=== PATIENT | male | born 1980 | race American Indian/Alaskan Native ===

== ENCOUNTER 2018-02-27 10:06 | Outpatient (CLI) | payer OTHER | END 2018-02-27 10:07 | disposition home or self-care (01) | LOC: LAB 10:06 | DX: I10 Essential (primary) hypertension (principal); D64.9 Anemia, unspecified; R94.4 Abnormal results of kidney function studies; R60.9 Edema, unspecified | CPT/HCPCS: 36415; 84132 ==

== ENCOUNTER 2018-03-09 07:46 | Day surgery (SDC) | payer OTHER ==
[2018-03-06 09:52] LABS: Hematocrit 24.5 % (35.5-45.6); Hemoglobin 7.9 gm/dl (11.8-15.2); Mean Corpuscular HGB Conc 32 % (32-34); Mean Corpuscular Hemoglobin 33 pg (28-32); Mean Corpuscular Volume 103 fl (84-94); Platelet Count 182 K/mm3 (140-440); Red Blood Count 2.39 M/mm3 (3.65-5.03); Red Cell Distribution Width 16.8 % (13.2-15.2)
[2018-03-06 10:02] LABS: INR 0.93 (0.87-1.13)
[2018-03-06 10:03] LABS: Partial Thromboplastin Time 21.3 Sec. (24.2-36.6)
[2018-03-09] MEDS ORDERED: VERSED IV NR (08:33)
[2018-03-09] MEDS ORDERED: SUBLIMAZE IV NR (08:33)
--- NOTE | 2018-03-09 11:05 | Cat Scan Report ---
CT BIOPSY RENAL RIGHT History: Abnormal renal function Description of procedure: Informed consent was obtained. Sterile technique was utilized. 1% lidocaine for skin anesthesia. Moderate sedation was accomplished with Versed and fentanyl. The patient was sedated for 15 minutes. Independent cardiorespiratory monitoring by RN. Intraobserver time of [address] guidance, a 17-gauge introducer needle was advanced to the inferior pole of the right kidney. 2 separate 1.3 cm 18-gauge core biopsies were obtained for pathology. Follow up scan demonstrates trace hemorrhage at the biopsy site. No uncontained hemorrhage. The patient tolerated the procedure without complaint. Impression: Successful CT-guided biopsy of the inferior pole of the right kidney.
[2018-03-09 14:32] VITALS: BP 128/70
== END 2018-03-09 14:45 | disposition home or self-care (01) ==
LOC: CATHLABREC 07:46
DX: N26.9 Renal sclerosis, unspecified (principal); N02.8 Recurrent and persistent hematuria with other morphologic changes; I70.1 Atherosclerosis of renal artery; N28.89 Other specified disorders of kidney and ureter; Z79.01 Long term (current) use of anticoagulants
CPT/HCPCS: 36415; 50200; 77012; 85027; 85610; 85730; 86850; 86900; 86901; 86920; 99156; J2250; J3010; 99152

== ENCOUNTER 2018-04-06 09:32 | Outpatient (CLI) | payer OTHER ==
[2018-04-06 10:03] LABS: Hematocrit 25.7 % (35.5-45.6); Hemoglobin 8.4 gm/dl (11.8-15.2); Mean Corpuscular HGB Conc 33 % (32-34); Mean Corpuscular Hemoglobin 31 pg (28-32); Mean Corpuscular Volume 94 fl (84-94); Platelet Count 237 K/mm3 (140-440); Red Blood Count 2.73 M/mm3 (3.65-5.03)
[2018-04-06 10:06] LABS: Red Cell Distribution Width 20.4 % (13.2-15.2)
[2018-04-06 10:12] LABS: Albumin 3.6 g/dL (3.9-5); Calcium 9.4 mg/dL (8.4-10.2)
[2018-04-06 14:46] LABS: Creatinine,Urine 46.2 mg/dL (0.1-20.0)
== END 2018-04-06 09:33 | disposition home or self-care (01) ==
LOC: LAB 09:32
DX: N39.0 Urinary tract infection, site not specified (principal); I10 Essential (primary) hypertension; D64.9 Anemia, unspecified; E78.5 Hyperlipidemia, unspecified; E78.00 Pure hypercholesterolemia, unspecified; E87.2 Acidosis; M32.9 Systemic lupus erythematosus, unspecified; R80.0 Isolated proteinuria; R60.9 Edema, unspecified; R94.4 Abnormal results of kidney function studies; F17.210 Nicotine dependence, cigarettes, uncomplicated
CPT/HCPCS: 36415; 80053; 82565; 82570; 82575; 83970; 84156; 85027; 87086

== ENCOUNTER 2019-01-19 09:18 | Outpatient (CLI) | payer OTHER ==
[2019-01-19 09:52] LABS: Basophils # (Auto) 0.1 K/mm3 (0.0-0.1); Basophils % (Auto) 0.8 % (0.0-1.8); Eosinophils % (Auto) 0.3 % (0.0-4.3); Hematocrit 34.6 % (35.5-45.6); Hemoglobin 11.8 gm/dl (11.8-15.2); Lymphocytes # (Auto) 0.6 K/mm3 (1.2-5.4); Lymphocytes % (Auto) 7.4 % (13.4-35.0); Mean Corpuscular HGB Conc 34 % (32-34); Mean Corpuscular Volume 104 fl (84-94); Monocytes # (Auto) 0.7 K/mm3 (0.0-0.8); Monocytes % (Auto) 9.1 % (0.0-7.3); Platelet Count 211 K/mm3 (140-440); Red Blood Count 3.35 M/mm3 (3.65-5.03)
[2019-01-19 10:01] LABS: Red Cell Distribution Width 21.6 % (13.2-15.2)
[2019-01-19 10:04] LABS: Albumin 4.7 g/dL (3.9-5); Calcium 9.6 mg/dL (8.4-10.2)
[2019-01-19 10:25] LABS: Bacteria,Urine 2+ /HPF (Negative); Bilirubin,Urine NEG (Negative); Blood,Urine NEG (Negative); Color,Urine Yellow (Yellow); Urobilinogen,Urine < 2.0 mg/dL (<2.0)
[2019-01-19 10:27] LABS: WBC,Urine > 182.0 /HPF (0.0-6.0)
== END 2019-01-19 09:19 | disposition home or self-care (01) ==
LOC: LAB 09:18
PROVIDERS: ATTEND Internal Medicine Nephrology
DX: I10 Essential (primary) hypertension (principal); E78.5 Hyperlipidemia, unspecified; R94.4 Abnormal results of kidney function studies; R60.9 Edema, unspecified; D64.9 Anemia, unspecified; E87.2 Acidosis; M32.9 Systemic lupus erythematosus, unspecified; R80.0 Isolated proteinuria; E78.00 Pure hypercholesterolemia, unspecified; Z87.891 Personal history of nicotine dependence
CPT/HCPCS: 36415; 80048; 81001; 82040; 83970; 84100; 85025

== ENCOUNTER 2019-10-07 17:20 | Emergency (ER) | payer OTHER ==
[2019-10-07 20:30] LABS: Basophils % (Auto) 0.2 % (0.0-1.8); Eosinophils % (Auto) 0.4 % (0.0-4.3); Hematocrit 32.4 % (35.5-45.6); Hemoglobin 10.6 gm/dl (11.8-15.2); Lymphocytes # (Auto) 0.7 K/mm3 (1.2-5.4); Mean Corpuscular HGB Conc 33 % (32-34); Mean Corpuscular Volume 98 fl (84-94); Monocytes # (Auto) 1.3 K/mm3 (0.0-0.8); Monocytes % (Auto) 11.7 % (0.0-7.3); Platelet Count 190 K/mm3 (140-440); Red Cell Distribution Width 19.1 % (13.2-15.2)
[2019-10-07 20:42] LABS: Calcium 8.7 mg/dL (8.4-10.2)
[2019-10-08] MEDS ORDERED: ONDANSETRON 4 MG/2 ML INJ IV ONE (01:05)
[2019-10-08] MEDS ORDERED: MORPHINE 4 MG/1 ML INJ IV ONE (01:05)
--- NOTE | 2019-10-08 01:08 | Emergency Department Report ---
ED Abdominal Pain HPI - General Chief Complaint: Abdominal Pain Stated Complaint: PELVIS PAIN Time Seen by Provider: 10/08/19 00:59 Source: patient Mode of arrival: Wheelchair Limitations: No Limitations - History of Present Illness Initial Comments: Patient is 39 years old male with history of lupus. Patient presented to the ER complaining of lower abdominal pain for the last 3 days. Patient describes his pain as sharp and dull with no radiation. Patient denied any fever or chills. No nausea or vomiting. Patient stated that he has been having trouble controlling his bowel and bladder for a while and this is from his lupus. Patient denied any chest pain or shortness of breath. MD Complaint: abdominal pain -: days(s) (3) Location: suprapubic Radiation: none Migration to: no migration Severity: moderate Quality: sharp Consistency: intermittent - Related Data Home Medications Medication Instructions Recorded Confirmed Last Taken Oxybutynin [Ditropan] 5 mg PO DAILY 03/09/18 10/20/18 03/09/18 Ropinirole HCl [Requip] 0.5 mg PO DAILY 03/09/18 10/20/18 03/09/18 Simvastatin 20 mg PO DAILY 03/09/18 10/20/18 03/08/18 hydrALAZINE [Apresoline TAB] 25 mg PO TID 03/09/18 10/20/18 03/09/18 Verapamil ER [Calan SR] 240 mg PO DAILY 05/12/18 10/20/18 Unknown Previous Rx's Medication Instructions Recorded Last Taken Type Ondansetron [Zofran TAB] 4 mg PO Q8HR PRN #15 tablet 08/15/18 Unknown Rx Pantoprazole [Protonix TAB] 40 mg PO DAILY #30 tablet 08/15/18 Unknown Rx oxyCODONE /ACETAMINOPHEN [Percocet 1 tab PO BID PRN #10 tablet 08/15/18 Unknown Rx 5/325 mg] Aspirin EC [Halfprin EC] 81 mg PO QDAY #30 tablet. 10/21/18 Unknown Rx Furosemide [Lasix] 20 mg PO QDAY #30 tablet 10/21/18 Unknown Rx Isosorbide Dinitrate [Isordil 10 mg PO Q8HR #30 tablet 10/21/18 Unknown Rx Titradose] Metoprolol Xl [Metoprolol 50 mg PO QDAY #30 tablet 10/21/18 Unknown Rx SUCCINATE ER TAB] Allergies Allergy/AdvReac Type Severity Reaction Status Date / Time lisinopril AdvReac Rash Verified 05/12/18 00:48 sulfamethoxazole AdvReac Unknown Verified 05/12/18 00:48 [From Bactrim] trimethoprim [From Bactrim] AdvReac Unknown Verified 05/12/18 00:48 ED Review of Systems ROS: Stated complaint: PELVIS PAIN Other details as noted in HPI Comment: All other systems reviewed and negative Constitutional: denies: chills, fever Respiratory: denies: cough, shortness of breath, SOB with exertion Cardiovascular: denies: chest pain, palpitations Gastrointestinal: abdominal pain. denies: nausea, vomiting, diarrhea, constipation, hematemesis, melena, hematochezia Genitourinary: other (incontinence). denies: urgency Musculoskeletal: denies: back pain Neurological: denies: headache, weakness, numbness, paresthesias, confusion, abnormal gait ED Past Medical Hx - Past Medical History Previous Medical History?: Yes Hx Hypertension: Yes Hx Congestive Heart Failure: No Hx Diabetes: No Hx Liver Disease: No Hx Renal Disease: Yes Hx Arthritis: Yes Hx Seizures: No Hx Asthma: No Hx COPD: No Additional medical history: lupus,urinary incontinence,anemia - Surgical History Past Surgical History?: Yes Additional Surgical History: hernia repair x 2 - Social History Smoking Status: Never Smoker Substance Use Type: None - Medications Home Medications: Home Medications Medication Instructions Recorded Confirmed Last Taken Type Oxybutynin [Ditropan] 5 mg PO DAILY 03/09/18 10/20/18 03/09/18 History Ropinirole HCl [Requip] 0.5 mg PO DAILY 03/09/18 10/20/18 03/09/18 History Simvastatin 20 mg PO DAILY 03/09/18 10/20/18 03/08/18 History hydrALAZINE [Apresoline TAB] 25 mg PO TID 03/09/18 10/20/18 03/09/18 History Verapamil ER [Calan SR] 240 mg PO DAILY 05/12/18 10/20/18 Unknown History Ondansetron [Zofran TAB] 4 mg PO Q8HR PRN #15 tablet 08/15/18 10/20/18 Unknown Rx Pantoprazole [Protonix TAB] 40 mg PO DAILY #30 tablet 08/15/18 10/20/18 Unknown Rx oxyCODONE /ACETAMINOPHEN [Percocet 1 tab PO BID PRN #10 tablet 08/15/18 10/20/18 Unknown Rx 5/325 mg] Aspirin EC [Halfprin EC] 81 mg PO QDAY #30 tablet. 10/21/18 Unknown Rx Furosemide [Lasix] 20 mg PO QDAY #30 tablet 10/21/18 Unknown Rx Isosorbide Dinitrate [Isordil 10 mg PO Q8HR #30 tablet 10/21/18 Unknown Rx Titradose] Metoprolol Xl [Metoprolol 50 mg PO QDAY #30 tablet 10/21/18 Unknown Rx SUCCINATE ER TAB] ED Physical Exam - General Limitations: No Limitations General appearance: alert, in no apparent distress - Head Head exam: Present: atraumatic, normocephalic, normal inspection - Eye Eye exam: Present: normal appearance, PERRL - ENT ENT exam: Present: normal exam, normal orophraynx, mucous membranes moist - Neck Neck exam: Present: normal inspection, full ROM. Absent: tenderness, meningismus, lymphadenopathy, thyromegaly - Respiratory Respiratory exam: Present: normal lung sounds bilaterally - Cardiovascular Cardiovascular Exam: Present: regular rate, normal rhythm, normal heart sounds - GI/Abdominal GI/Abdominal exam: Present: soft, normal bowel sounds. Absent: distended, tenderness, guarding, rebound, rigid, organomegaly, mass, bruit, pulsatile mass, hernia - Extremities Exam Extremities exam: Present: normal inspection, full ROM, normal capillary refill. Absent: tenderness - Back Exam Back exam: Present: normal inspection, full ROM. Absent: CVA tenderness (R), CVA tenderness (L), muscle spasm, paraspinal tenderness, vertebral tenderness - Neurological Exam Neurological exam: Present: alert, oriented X3, CN II-XII intact - Skin Skin exam: Present: warm, intact, normal color ED Course Vital Signs 10/07/19 10/08/19 18:16 02:00 Temperature 98.3 F 97.7 F Pulse Rate 100 H 67 Respiratory 18 18 Rate Blood Pressure 150/91 157/93 [Left] O2 Sat by Pulse 98 97 Oximetry ED Medical Decision Making - Lab Data Result diagrams: 10/07/19 19:47 10/07/19 19:47 - Radiology Data Radiology results: report reviewed - Medical Decision Making Patient is 39 years old male with history of lupus. Patient presented to the ER complaining of lower abdominal pain for the last 3 days. Patient describes his pain as sharp and dull with no radiation. Patient denied any fever or chills. No nausea or vomiting. Patient stated that he has been having trouble controlling his bowel and bladder for a while and this is from his lupus. Patie nt denied any chest pain or shortness of breast. Patient received morphine and stated that he feel much better. Ct abdomen/pelvis is unremarkable. Patient advised to f/u with his PCP and to return to the ER if symptoms not improved. Critical care attestation.: If time is entered above; I have spent that time in minutes in the direct care of this critically ill patient, excluding procedure time. ED Disposition Clinical Impression: Abdominal pain Disposition: DC-01 TO HOME OR SELFCARE Is pt being admited?: No Condition: Stable Instructions: Abdominal Pain (ED) Referrals: PRIMARY CARE, [Primary Care Provider] - 3-5 Days
--- NOTE | 2019-10-08 03:22 | Cat Scan Report ---
CT abdomen pelvis w con INDICATION: abdominal pain. TECHNIQUE: All CT scans at this location are performed using the following dose modulation technique: Automated exposure control. CONTRAST: Omnipaque 300, 60 cc IV injection. COMPARISON: CT abdomen and pelvis 08/08/2018. CT ABDOMEN: Evaluation of the parenchymal organs demonstrates mild renal scarring left greater than r ight. The left kidney contains a 1 mm nonobstructing stone. Remaining parenchymal organs are unremark able. Negative for abdominal mass, fluid or inflammation. The bowel is not dilated or thickened. A normal a ppendix is identified. CT PELVIS: Negative for distal ureteral stone, fluid collection or inflammation. A small amount of fl uid is seen at the presacral space. The bladder wall is symmetrically thickened. IMPRESSION: 1. Negative for obstruction or localized inflammation. 2. Left renal scarring and small nonobstructing stone. 3. Symmetric bladder wall thickening typical of bladder outlet obstruction 4. Fluid at the presacral space is likely reactive. Signer Name: Rigoberto Chin MD Signed: 10/08/2019 3:18 AM Workstation Name: [id number]
[2019-10-08 04:10] VITALS: BP 163/96
== END 2019-10-08 04:24 | disposition home or self-care (01) ==
LOC: ED 17:20
DX: R10.30 Lower abdominal pain, unspecified (principal); I10 Essential (primary) hypertension; N28.9 Disorder of kidney and ureter, unspecified; Z98.890 Other specified postprocedural states; Z88.8 Allergy status to other drugs, medicaments and biological substances; Z88.2 Allergy status to sulfonamides
CPT/HCPCS: 36415; 74177; 80048; 85025; 96374; 96375; 99284; J2270; J2405; Q9967

== ENCOUNTER 2019-12-03 10:22 | Outpatient (CLI) | payer OTHER ==
--- NOTE | 2019-12-03 12:14 | Cat Scan Report ---
CT ABDOMEN AND PELVIS WITHOUT CONTRAST HISTORY: N18.3 CKD STAGE 3/N39.0 UTI/R60.0 LOWER LEG EDEMA COMPARISON: 10/08/2019 TECHNIQUE: Axial CT images were obtained through the abdomen and pelvis without IV contrast. Sagittal and coronal reformatted images. All CT scans at this location are performed using CT dose reduction for ALARA by means of automated exposure control. FINDINGS: CT ABDOMEN: Lung Bases: Clear. Liver: No significant abnormality. Biliary: No significant abnormality. Spleen: No significant abnormality. Unenlarged. Pancreas: No significant abnormality. Adrenals: No significant abnormality. Kidneys: The kidneys are normal size and position. Focal cortical scarring in the inferior left kidne y is again noted. Punctate calyceal stone at the inferior pole of the left kidney is unchanged. Punct ate stone in the mid right kidney is also noted. No cystic disease, mass or hydronephrosis is suspect ed. Lymphatics: No lymphadenopathy. Vasculature: No significant abnormality. Bowel/Peritoneum: No significant abnormality. No free air. No free fluid. Normal appendix. CT PELVIS: : There is moderate diffuse bladder wall thickening measuring up to 9 mm. No bladder stones or obvi ous mass. The distal ureters and prostate gland are unremarkable. Osseous Structures: Mild osteopenia is suspected. Additional Findings: None IMPRESSION: No obstructive uropathy. Punctate renal stones are noted in both kidneys. Focal scarring in the infer ior left kidney is stable. No significant change since 10/08/2019. Diffuse bladder wall thickening which is also unchanged and could represent a chronic cystitis. No acute process is identified. Signer Name: Tom Lopez Jr, MD Signed: 12/03/2019 12:10 PM Workstation Name: [id number]
== END 2019-12-03 10:23 | disposition home or self-care (01) ==
LOC: CT 10:22
DX: N20.0 Calculus of kidney (principal); N18.3 Chronic kidney disease, stage 3 (moderate); N39.0 Urinary tract infection, site not specified
CPT/HCPCS: 74176

== ENCOUNTER 2020-01-27 07:52 | Outpatient (CLI) | payer OTHER ==
--- NOTE | 2020-01-27 09:11 | Ultrasound Report ---
LIMITED RUQ ABDOMINAL ULTRASOUND INDICATION: VOMITING. COMPARISON: No relevant prior imaging study available. FINDINGS: Pancreas: Visualized portions show no significant abnormality. Abdominal Aorta: No significant abnormality. IVC: No significant abnormality. Liver: The liver measures 17.2 cm in length. No significant abnormality. Normal hepatopedal blood fl ow in the main portal vein. Gallbladder: No significant abnormality. Bile ducts: No significant abnormality. Common bile duct measures 4.9 mm. Right kidney: The right kidney is normal size measuring 11.8 cm but demonstrates increased cortical e chotexture. No focal renal lesion or hydronephrosis.. Free fluid: None. Additional Findings: Trace right pleural effusion. IMPRESSION: Unremarkable liver and biliary system. Slightly echogenic right kidney which could represent mild nonspecific renal parenchymal disease. Trace right pleural effusion.. Signer Name: Tom Lopez Jr, MD Signed: 01/27/2020 9:06 AM Workstation Name: [id number]
== END 2020-01-27 07:53 | disposition home or self-care (01) ==
LOC: US 07:52
PROVIDERS: ATTEND Student in an Organized Health Care Education/Training Program
DX: N28.89 Other specified disorders of kidney and ureter (principal); R11.10 Vomiting, unspecified
CPT/HCPCS: 76705

== ENCOUNTER 2020-07-03 17:01 | Inpatient (IN) | payer OTHER ==
[2020-07-03] MEDS ORDERED: LACTATED RINGERS 1,000 ML IV ONE (17:19)
--- NOTE | 2020-07-03 17:19 | Emergency Department Report ---
<BRIGID GLEASON - Last Filed: 07/03/20 20:11> ED General Adult HPI - General Chief complaint: Altered Mental Status Stated complaint: STEMI PUI?: No Time Seen by Provider: 07/03/20 17:15 Source: patient, EMS ( EMS documentation not available at time of chart dictation ), RN notes reviewed, old records reviewed Mode of arrival: Stretcher Limitations: Altered Mental Status, Physical Limitation - History of Present Illness Initial comments: The patient is a 40-year-old gentleman. Past medical history is complex, includes lupus, hypertension, renal insufficiency. He also has a history of dilated cardiomyopathy, EF of 35 to 45%. Today, he is brought to the hospital by emergency medical services with a complaint of weakness, and altered mental status. The patient himself denies complaints. The patient denies headache, neck pain, chest pain, abdominal pain, shortness of breath. He is not accompanied by friends or family at this time for additional information or collateral information. As per triage nurse documentation: "Mother called EMS because of lethargy." The patient is slightly sleepy but arousable. He states that he has chronic lower extremity weakness "for a long time." He is not accompanied by friends or family at this time for additional information or collateral information. I contacted the listed phone number in the patient's demographic sheet, and left a voicemail for call back requesting additional information, as nobody answered the phone. Patient is slightly confused, therefore, he is not able to describe the qualitative nature of his symptoms, exacerbating, relieving factors, aggravating factors, or radiation. -: unknown Quality: other Consistency: other Improves with: other Worsens with: other Associated Symptoms: other - Related Data Home Medications Medication Instructions Recorded Confirmed Last Taken Oxybutynin [Ditropan] 5 mg PO DAILY 03/09/18 07/03/20 03/09/18 Ropinirole HCl [Requip] 0.5 mg PO DAILY 03/09/18 07/03/20 03/09/18 Simvastatin 20 mg PO DAILY 03/09/18 07/03/20 03/08/18 hydrALAZINE [Apresoline TAB] 25 mg PO TID 03/09/18 07/03/20 03/09/18 Verapamil ER [Calan SR] 240 mg PO DAILY 05/12/18 07/03/20 Unknown Previous Rx's Medication Instructions Recorded Last Taken Type Ondansetron [Zofran TAB] 4 mg PO Q8HR PRN #15 tablet 08/15/18 Unknown Rx Pantoprazole [Protonix TAB] 40 mg PO DAILY #30 tablet 08/15/18 Unknown Rx oxyCODONE /ACETAMINOPHEN [Percocet 1 tab PO BID PRN #10 tablet 08/15/18 Unknown Rx 5/325 mg] Aspirin EC [Halfprin EC] 81 mg PO QDAY #30 tablet.dr 10/21/18 Unknown Rx Furosemide [Lasix] 20 mg PO QDAY #30 tablet 10/21/18 Unknown Rx Isosorbide Dinitrate [Isordil] 10 mg PO Q8HR #30 tablet 10/21/18 Unknown Rx Metoprolol Xl [Metoprolol 50 mg PO QDAY #30 tablet 10/21/18 Unknown Rx SUCCINATE ER TAB] traMADoL [Ultram] 50 mg PO Q6HR PRN #14 tablet 10/08/19 Unknown Rx Allergies Allergy/AdvReac Type Severity Reaction Status Date / Time lisinopril AdvReac Rash Verified 05/12/18 00:48 sulfamethoxazole AdvReac Unknown Verified 05/12/18 00:48 [From Bactrim] trimethoprim [From Bactrim] AdvReac Unknown Verified 05/12/18 00:48 ED Review of Systems Comment: Unobtainable due to pts medical conditions Constitutional: weakness Neurological: confusion ED Past Medical Hx - Past Medical History Hx Hypertension: Yes Hx Congestive Heart Failure: No Hx Diabetes: No Hx Liver Disease: No Hx Renal Disease: Yes Hx Arthritis: Yes Hx Seizures: No Hx Asthma: No Hx COPD: No Additional medical history: lupus,urinary incontinence,anemia - Surgical History Additional Surgical History: hernia repair x 2 - Social History Smoking Status: Never Smoker Substance Use Type: None - Medications Home Medications: Home Medications Medication Instructions Recorded Confirmed Last Taken Type Oxybutynin [Ditropan] 5 mg PO DAILY 03/09/18 07/03/20 03/09/18 History Ropinirole HCl [Requip] 0.5 mg PO DAILY 03/09/18 07/03/20 03/09/18 History Simvastatin 20 mg PO DAILY 03/09/18 07/03/20 03/08/18 History hydrALAZINE [Apresoline TAB] 25 mg PO TID 03/09/18 07/03/20 03/09/18 History Verapamil ER [Calan SR] 240 mg PO DAILY 05/12/18 07/03/20 Unknown History Ondansetron [Zofran TAB] 4 mg PO Q8HR PRN #15 tablet 08/15/18 07/03/20 Unknown Rx Pantoprazole [Protonix TAB] 40 mg PO DAILY #30 tablet 08/15/18 07/03/20 Unknown Rx oxyCODONE /ACETAMINOPHEN [Percocet 1 tab PO BID PRN #10 tablet 08/15/18 07/03/20 Unknown Rx 5/325 mg] Aspirin EC [Halfprin EC] 81 mg PO QDAY #30 tablet. 10/21/18 07/03/20 Unknown Rx Furosemide [Lasix] 20 mg PO QDAY #30 tablet 10/21/18 07/03/20 Unknown Rx Isosorbide Dinitrate [Isordil] 10 mg PO Q8HR #30 tablet 10/21/18 07/03/20 Unknown Rx Metoprolol Xl [Metoprolol 50 mg PO QDAY #30 tablet 10/21/18 07/03/20 Unknown Rx SUCCINATE ER TAB] traMADoL [Ultram] 50 mg PO Q6HR PRN #14 tablet 10/08/19 07/03/20 Unknown Rx ED Physical Exam - General Limitations: Altered Mental Status, Physical Limitation General appearance: lethargic - Head Head exam: Present: atraumatic, normocephalic - Eye Eye exam: Present: normal appearance - ENT ENT exam: Present: normal exam, mucous membranes dry, normal external ear exam - Neck Neck exam: Present: normal inspection, full ROM. Absent: tenderness, meningismu s - Respiratory Respiratory exam: Present: normal lung sounds bilaterally. Absent: respiratory distress - Cardiovascular Cardiovascular Exam: Present: normal rhythm, tachycardia, normal heart sounds. Absent: systolic murmur, diastolic murmur, rubs, gallop - GI/Abdominal GI/Abdominal exam: Present: soft. Absent: distended, tenderness, guarding, rebound, rigid, pulsatile mass - Rectal Rectal exam: Present: deferred - Extremities Exam Extremities exam: Present: normal inspection, other (2+ pulses noted in the bilateral upper and lower extremities. 2+ pulses noted in the bilateral upper and lower extremities. There is no palpable cord. negative Homans sign. Muscular compartments are soft. The pelvis is stable.) - Back Exam Back exam: Present: normal inspection. Absent: tenderness, CVA tenderness (R), CVA tenderness (L), paraspinal tenderness, vertebral tenderness - Neurological Exam Neurological exam: Present: altered, other (Patient sleepy but arousable. He moves his bilateral upper extremities. There is no obvious facial droop. Patient will answer some yes/no questions. He states he has chronic weakness in his bilateral lower extremities. He is not moving his lower extremities.) - Psychiatric Psychiatric exam: Present: other (No agitation noted) - Skin Skin exam: Present: warm, dry, intact, normal color. Absent: rash ED Course - Reevaluation(s) Reevaluation #1: 07/03/20 18:12 Differential diagnosis, including but not limited to: Bacteremia, viremia, intracranial lesion, lupus flare/exacerbation, lupus pericarditis/myocarditis, urinary tract infection, lupus cerebritis Assessment and plan: 40-year-old gentleman with tachycardia, nonspecific change in mentation, found to have bilateral lower extremity weakness, afebrile, with acceptable blood pressure. The patient is awake, follows commands, although he appears somewhat sleepy, with no nuchal rigidity. Check basic labs, CT scan of the brain, initiate antibiotics, fluids, steroid th erapy. Reassess after initial data points. We anticipate admission. Reevaluation #2: 07/03/20 19:05 Dr Ruy Cuba to admit discussed with neurology, Dr. Man, who is currently evaluating the patient. Recommends MRI of the brain, C, T, L-spine to be performed tomorrow. He is in agreement with spinal tap. Were also in agreement that ceftriaxone and Decadron acceptable at this time, neither of us have a high suspicion for community-acquired meningitis or encephalitis. We will attempt to obtain informed consent from the patient. We called up his family, and no one has called us back. If the patient is not able to provide informed consent, Dr. Ruy Cuba and myself will provide to provider administrative emergent consent for diagnostic procedure 07/03/20 19:07 07/03/20 19:24 Reevaluation #3: 07/03/20 20:04 Lumbar puncture performed. Patient tolerated the procedure well. Will defer to the inpatient team to follow-up on results. Patient was able to provide written informed consent. Dr Maliha Pandey to follow up on LP results 07/03/20 20:11 - Consultations Consultation #1: 07/03/20 19:21 Discussed with cardiology on-call, Dr. Kavon Alegre, we discussed the patient's history, physical, pertinent laboratory studies, EKG findings and impending diagnostics. Given impending spinal tap, will not systemically anticoagulate the patient We will treat the patient supportively, cardiology is in agreement with this plan, they will see him tomorrow in consultation. - Lumbar Puncture Consent Obtained: verbal consent, written consent, emergent situation Time Out Performed: Yes Indication for Procedure: change in mental status Patient Position: Sitting Upright/Leaning F Skin Prep: Povidone-Iodine 1% Local Anesthetic Used: Lidocaine 1% Amount of anesthesia used (mls): 6 Spinal Needle Gauge: 20G Spinal Needle Length: 3in Interspace Used: L4-L5 Fluid Initially Obtained: clear Complications: none Patient Tolerated Procedure: well ED Medical Decision Making - Lab Data Result diagrams: 07/03/20 17:33 07/03/20 17:33 Vital Signs 07/03/20 07/03/20 07/03/20 17:10 17:11 17:12 Temperature 98.8 F Pulse Rate 118 H Respiratory 18 Rate Blood Pressure 141/95 O2 Sat by Pulse 98 97 Oximetry 07/03/20 07/03/20 17:16 17:30 Temperature Pulse Rate 109 H Respiratory 18 23 Rate Blood Pressure 141/95 141/95 O2 Sat by Pulse 98 96 Oximetry Lab Results 07/03/20 Range/Units 17:30 Urine Color Yellow (Yellow) Urine Turbidity Cloudy (Clear) Urine pH 6.0 (5.0-7.0) Ur Specific Sawyer 1.009 (1.003-1.030) Urine Protein 100 mg/dl (Negative) mg/dL Urine Glucose (UA) Neg (Negative) mg/dL Urine Ketones Neg (Negative) mg/dL Urine Blood Sm (Negative) Urine Nitrite Neg (Negative) Urine Bilirubin Neg (Negative) Urine Urobilinogen < 2.0 (<2.0) mg/dL Ur Leukocyte Esterase Lg (Negative) Urine WBC (Auto) > 182.0 H (0.0-6.0) /HPF Urine RBC (Auto) 4.0 (0.0-6.0) /HPF U Epithel Cells (Auto) 2.0 (0-13.0) /HPF Urine Bacteria (Auto) 4+ (Negative) /HPF Urine WBC Clumps 3+ /HPF Urine Mucus Few /HPF - EKG Data -: EKG Interpreted by Pa EKG shows normal: sinus rhythm Rate: tachycardia - EKG Data 07/03/20 18:11 EKG shows sinus rhythm, tachycardia, rightward axis deviation, QTC prolonged, right bundle branch block, left posterior fascicular block, EKG is abnormal, the EKG is not a STEMI. The EKG shows nonspecific changes when compared to prior EKG from 10/2018 - Radiology Data Radiology results: pending, report reviewed, image reviewed Report Referring Physician: BRIGID GLEASON Patient Name: CLAU JOHNSON Date of : 1980 Sex: Male Report Date: 2020-07-03 Report Status: Finalized Findings [facility] [address] [place] [address] Cat Scan Report Signed Patient: CLAU JOHNSON MR# : [id number] : 1980 Acct:[id number] Age/Sex: 40 / M ADM Date: 07/03/20 Loc: ED Attending Dr: Ordering Physician: BRIGID GLEASON MD Date of Service: 07/03/20 Procedure(s): CT head/brain wo con Accession Number(s): [id number] cc: BRIGID GLEASON MD CT HEAD WITHOUT CONTRAST INDICATION / CLINICAL INFORMATION: Altered Mental Status. TECHNIQUE: All CT scans at this location are performed using CT dose reduction for ALARA by means of automated exposure control. COMPARISON: None available. FINDINGS: HEMORRHAGE: No evidence of intracranial hemorrhage or extra-axial fluid collection. EXTRA-AXIAL SPACES: Cortical sulci, sylvian fissures and basilar cisterns have an unremarkable appearance. VENTRICULAR SYSTEM: Developmental asymmetry of the lateral ventricles is noted, left larger than right. Third ventricle has a normal appearance. Mild prominence of the fourth ventricle is noted. This appears to be related to cerebellar atrophy. CEREBRAL PARENCHYMA: No areas of abnormal brain parenchymal attenuation are i dentified. There is no indication of recent infarction. MIDLINE SHIFT OR HERNIATION: There is no mass effect. CEREBELLUM / BRAINSTEM: Brainstem has an unremarkable appearance. Mild cerebellar atrophy is noted. MIDLINE STRUCTURES:No abnormalities of the pituitary gland or pineal region are identified. INTRACRANIAL VESSELS:No abnormalities are identified on this noncontrast head CT. ORBITS: visualized portions of the orbits have an unremarkable appearance. SOFT TISSUES of HEAD: No significant abnormality. CALVARIUM: Evaluation of bone windows reveals no abnormalities. PARANASAL SINUSES / MASTOID AIR CELLS: Paranasal sinuses are free from inflammatory mucosal disease. Mastoid air cells are normally pneumatized. IMPRESSION: 1. No acute intracranial abnormality. 2. Mild cerebellar atrophy is noted. Signer Name: Vito De La Garza MD Signed: 07/03/2020 6:38 PM Workstation Name: [id number] Transcribed By: Dictated By: Vito De La Garza MD Electronically Authenticated By: Vito De La Garza MD Signed Date/Time: 07/03/20 183 Print Report Referring Physician: BRIGID GLEASON Patient Name: CLAU JOHNSON Date of : 1980 Sex: Male Report Date: 2020-07-03 Report Status: Finalized Findings [address] [address] XRay Report Signed Patient: CLAU JOHNSON MR# : [id number] : 1980 Acct:[id number] Age/Sex: 40 / M ADM Date: 07/03/20 Loc: ED Attending Dr: Ordering Physician: BRIGID GLEASON MD Date of Service: 07/03/20 Procedure(s): XR chest 1V ap Accession Number(s): [id number] cc: BRIGID GLEASON MD Fluoro Time In Minutes: CHEST 1 VIEW 07/03/2020 5:22 PM INDICATION / CLINICAL INFORMATION: Altered Mental Status. COMPARISON: 10/20/18 FINDINGS: SUPPORT DEVICES: None. HEART / MEDIASTINUM: Upper normal size and stable. LUNGS / P LEURA: No significant pulmonary or pleural abnormality. No pneumothorax. ADDITIONAL FINDINGS: No significant additional findings. IMPRESSION: 1. No acute findings. No change. Signer Name: Sean Contreras MD Signed: 07/03/2020 6:27 PM Workstation Name: [id number] Transcribed By: DT Dictated By: Clarke Contreras MD Electronically Authenticated By: Clarke Contreras MD Signed Date/Time: 07/03/20 657 ED Disposition Clinical Impression: Lower extremity weakness, Elevated troponin, SLE (systemic lupus erythematosus), CRF (chronic renal failure), UTI (urinary tract infection) Disposition: OP ADMIT IP TO THIS HOSP Is pt being admited?: Yes Condition: Serious <RUPAL PANDEY Robert - Last Filed: 07/03/20 21:37> ED Review of Systems ROS: Stated complaint: STEMI Other details as noted in HPI ED Course Vital Signs 07/03/20 07/03/20 07/03/20 17:08 17:10 17:11 Temperature 98.8 F Pulse Rate Respiratory 23 Rate Blood Pressure O2 Sat by Pulse 96 98 Oximetry 07/03/20 07/03/20 07/03/20 17:12 17:16 17:30 Temperature Pulse Rate 118 H 109 H Respiratory 18 18 23 Rate Blood Pressure 141/95 141/95 141/95 O2 Sat by Pulse 97 98 96 Oximetry 07/03/20 07/03/20 17:45 18:00 Temperature Pulse Rate 102 H Respiratory Rate Blood Pressure 134/86 125/92 O2 Sat by Pulse 96 93 Oximetry ED Medical Decision Making - Lab Data Result diagrams: 07/03/20 17:33 07/03/20 17:33 - Medical Decision Making pts csf cell differential, protein, and glucose reviewed. They are not consistent with bacterial meningitis. CSF Gram stain and culture results are pending and to be followed up by inpatient team pt is already admitted to hospitalist service Critical care attestation.: If time is entered above; I have spent that time in minutes in the direct care of this critically ill patient, excluding procedure time. ED Disposition Time of Disposition: 21:37
[2020-07-03 18:09] LABS: Bacteria,Urine 4+ /HPF (Negative); Bilirubin,Urine NEG (Negative); Blood,Urine SM (Negative); Color,Urine Yellow (Yellow); Mucus,Urine FEW /HPF; Urobilinogen,Urine < 2.0 mg/dL (<2.0)
[2020-07-03] MEDS ORDERED: dexAMETHasone 20 MG/5 ML VIAL IV ONE (18:09)
[2020-07-03] MEDS ORDERED: SODIUM CHLORIDE 0.9% 500 ML 500 ML IV ONE ×2 (18:10→19:10)
[2020-07-03 18:11] LABS: WBC,Urine > 182.0 /HPF (0.0-6.0)
[2020-07-03] MEDS ORDERED: cefTRIAXone/NS 2 GM/100 ML 2 GM/100 ML BAG IV STA (18:12)
[2020-07-03 18:16] LABS: Hematocrit 36.9 % (35.5-45.6); Hemoglobin 12.2 gm/dl (11.8-15.2); Mean Corpuscular HGB Conc 33 % (32-34); Mean Corpuscular Volume 86 fl (84-94); Platelet Count 156 K/mm3 (140-440); Red Blood Count 4.28 M/mm3 (3.65-5.03)
[2020-07-03 18:26] LABS: Albumin 3.1 g/dL (3.9-5); Calcium 7.6 mg/dL (8.4-10.2); Red Cell Distribution Width 20.6 % (13.2-15.2)
--- NOTE | 2020-07-03 18:31 | XRay Report ---
CHEST 1 VIEW 07/03/2020 5:22 PM INDICATION / CLINICAL INFORMATION: Altered Mental Status. COMPARISON: 10/20/18 FINDINGS: SUPPORT DEVICES: None. HEART / MEDIASTINUM: Upper normal size and stable. LUNGS / PLEURA: No significant pulmonary or pleural abnormality. No pneumothorax. ADDITIONAL FINDINGS: No significant additional findings. IMPRESSION: 1. No acute findings. No change. Signer Name: Sean Contreras MD Signed: 07/03/2020 6:27 PM Workstation Name: [id number]
--- NOTE | 2020-07-03 18:42 | Cat Scan Report ---
CT HEAD WITHOUT CONTRAST INDICATION / CLINICAL INFORMATION: Altered Mental Status. TECHNIQUE: All CT scans at this location are performed using CT dose reduction for ALARA by means of automated e xposure control. COMPARISON: None available. FINDINGS: HEMORRHAGE: No evidence of intracranial hemorrhage or extra-axial fluid collection. EXTRA-AXIAL SPACES: Cortical sulci, sylvian fissures and basilar cisterns have an unremarkable appear ance. VENTRICULAR SYSTEM: Developmental asymmetry of the lateral ventricles is noted, left larger than righ t. Third ventricle has a normal appearance. Mild prominence of the fourth ventricle is noted. This ap pears to be related to cerebellar atrophy. CEREBRAL PARENCHYMA: No areas of abnormal brain parenchymal attenuation are identified. There is no i ndication of recent infarction. MIDLINE SHIFT OR HERNIATION: There is no mass effect. CEREBELLUM / BRAINSTEM: Brainstem has an unremarkable appearance. Mild cerebellar atrophy is noted. MIDLINE STRUCTURES:No abnormalities of the pituitary gland or pineal region are identified. INTRACRANIAL VESSELS:No abnormalities are identified on this noncontrast head CT. ORBITS: visualized portions of the orbits have an unremarkable appearance. SOFT TISSUES of HEAD: No significant abnormality. CALVARIUM: Evaluation of bone windows reveals no abnormalities. PARANASAL SINUSES / MASTOID AIR CELLS: Paranasal sinuses are free from inflammatory mucosal disease. Mastoid air cells are normally pneumatized. IMPRESSION: 1. No acute intracranial abnormality. 2. Mild cerebellar atrophy is noted. Signer Name: Vito De La Garza MD Signed: 07/03/2020 6:38 PM Workstation Name: [id number]
[2020-07-03 18:52] LABS: INR 1.06 (0.87-1.13)
[2020-07-03 18:53] LABS: Partial Thromboplastin Time 24.8 Sec. (24.2-36.6)
[2020-07-03 18:59] LABS: Basophils % (Manual) 0 % (0.0-1.8); Total Cells Counted 100
[2020-07-03] MEDS ORDERED: LIDOCAINE 1.5% /EPINEPHRINE 1:200,000 AMP (5 ML) INFILTRATI ONE (18:59)
[2020-07-03] MEDS ORDERED: fentaNYL 100 MCG/2 ML INJ IV ONE (19:00)
[2020-07-03 19:01] LABS: Hypochromasia Few; Platelet Estimate Consistent w Auto; Target Cells Few
[2020-07-03 19:40] LABS: Chol/HDL Ratio 3.67 %
[2020-07-03] MEDS ORDERED: LIDOCAINE (1%) 10 MG/1 ML VIAL 20 ML MDV ONE (19:48)
[2020-07-03 20:32] LABS: Glucose,CSF 59 mg/dL
--- NOTE | 2020-07-03 20:48 | Consultation ---
History of Present Illness Consult date: 07/03/20 History of present illness: [facility] Consult Services Stat Consult Date of Service: 07/03/2020 18:39:41 Impression: Encephalopathy must rule out cerebritis and transverse myelitis Additionally must consider pericarditis or myocarditis in face of troponin elevation. Comments/Sign-Out: He needs a complete evaluation to include autoimmune profile, lumbar puncture including routine studies and CSF IgG index, MRI of brain as well as cervical, thoracic and lumbar spine. I agree with steroid treatment and antibiotic for urine, A clearer picture of his background hopefully can vbe obtained from a family member, Metrics: [facility] Notification Time: 07/03/2020 18:38:21 Stamp Time: 07/03/2020 18:39:41 Callback Response Time: 07/03/2020 18:42:42 Video Start Time: 07/03/2020 18:57:45 Video End Time: 07/03/2020 19:20:44 Our recommendations are outlined below. Therapies: Physical Therapy, Occupational Therapy, Speech Therapy Assessment When Applicable Other WorkUp: Infectious/metabolic workup per primary team Disposition: Neurology Follow Up Recommended Sign Out: Discussed with Emergency Department Provider Chief Complaint: Confusion History of Present Illness: Patient is a 40 year old Male. This is a 40-year-old man who claims he doesn't know why he is at the hospital. His story keeps changing and he is vague. 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 He has obvious dermatologic abnormalities with patches of vitiligo and here loss. He claims to have been walking up until two days ago. Now he has profound weakness in both legs. He has a permanent indwelling catheter and he says that he has no control over bowels or bladder and he has been catheterized for 10 years. He says that he is very weak and "wretched." He has history of hypertension. He is not diabetic. He doesn't of coronary disease but says he has congestive heart failure. He has kidney disease. His urinalysis showed 4+ white blood cells but is not clear if this is infection or colonization. He has an elevated lactic acid of 2.9 but he is not febrile consistent with sepsis and he denies any history of seizures. The ED physician was concerned about possible meningitis or cerebritis. The patient later told me that he sees a poker manager who told him he does not have systemic lupus but only discoid lupus. 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 He is paraplegic. Due to the immediate potential for life-threatening deterioration due to underlying acute neurologic illness, I spent 35 minutes providing critical care. This time includes time for face to face visit via telemedicine, review of medical records, imaging studies and discussion of findings with providers, the patient and/or family. Dr Vasyl Man [facility] Case [id number] Medications and Allergies Allergies Allergy/AdvReac Type Severity Reaction Status Date / Time lisinopril AdvReac Rash Verified 05/12/18 00:48 sulfamethoxazole AdvReac Unknown Verified 05/12/18 00:48 [From Bactrim] trimethoprim [From Bactrim] AdvReac Unknown Verified 05/12/18 00:48 Home Medications Medication Instructions Recorded Confirmed Last Taken Type Oxybutynin [Ditropan] 5 mg PO DAILY 03/09/18 07/03/20 03/09/18 History Ropinirole HCl [Requip] 0.5 mg PO DAILY 03/09/18 07/03/20 03/09/18 History Simvastatin 20 mg PO DAILY 03/09/18 07/03/20 03/08/18 History hydrALAZINE [Apresoline TAB] 25 mg PO TID 03/09/18 07/03/20 03/09/18 History Verapamil ER [Calan SR] 240 mg PO DAILY 05/12/18 07/03/20 Unknown History Ondansetron [Zofran TAB] 4 mg PO Q8HR PRN #15 tablet 08/15/18 07/03/20 Unknown Rx Pantoprazole [Protonix TAB] 40 mg PO DAILY #30 tablet 08/15/18 07/03/20 Unknown Rx oxyCODONE /ACETAMINOPHEN [Percocet 1 tab PO BID PRN #10 tablet 08/15/18 07/03/20 Unknown Rx 5/325 mg] Aspirin EC [Halfprin EC] 81 mg PO QDAY #30 tablet.dr 10/21/18 07/03/20 Unknown Rx Furosemide [Lasix] 20 mg PO QDAY #30 tablet 10/21/18 07/03/20 Unknown Rx Isosorbide Dinitrate [Isordil] 10 mg PO Q8HR #30 tablet 10/21/18 07/03/20 Un known Rx Metoprolol Xl [Metoprolol 50 mg PO QDAY #30 tablet 10/21/18 07/03/20 Unknown Rx SUCCINATE ER TAB] traMADoL [Ultram] 50 mg PO Q6HR PRN #14 tablet 10/08/19 07/03/20 Unknown Rx Physical Examination - Vital Signs Vital Signs: Vital Signs Resp Pulse Ox 23 96 07/03/20 17:08 07/03/20 17:08 Results - Laboratory Findings CBC and BMP: 07/03/20 17:33 07/03/20 17:33 Abnormal Lab Findings: Abnormal Labs 07/03/20 07/03/20 07/03/20 17:30 17:33 17:33 RDW 20.6 H Seg Neuts % (Manual) 74.0 H Potassium 3.5 L Carbon Dioxide 19 L Creatinine 1.8 H Glucose 105 H Lactic Acid Calcium 7.6 L Alkaline Phosphatase 155 H Total Creatine Kinase 185 H Troponin T 0.368 H* Albumin 3.1 L Triglycerides Cholesterol TSH Urine WBC (Auto) > 182.0 H Salicylates Acetaminophen 07/03/20 07/03/20 07/03/20 17:33 17:33 17:33 RDW Seg Neuts % (Manual) Potassium Carbon Dioxide Creatinine Glucose Lactic Acid 2.90 H* Calcium Alkaline Phosphatase Total Creatine Kinase Troponin T Albumin Triglycerides Cholesterol TSH 0.164 L Urine WBC (Auto) Salicylates < 0.3 L Acetaminophen 07/03/20 07/03/20 17:33 17:33 RDW Seg Neuts % (Manual) Potassium Carbon Dioxide Creatinine Glucose Lactic Acid Calcium Alkaline Phosphatase Total Creatine Kinase Troponin T Albumin Triglycerides 216 H Cholesterol 206 H TSH Urine WBC (Auto) Salicylates Acetaminophen 5.0 L
[2020-07-03 21:07] LABS: Appearance,CSF Clear
[2020-07-03 21:08] LABS: Total Cells Counted 50 /mm3
[2020-07-03 21:11] LABS: Basophils CSF 0 %; Red Blood Cell,CSF 0 /mm3 (0-0); White Blood Cell,CSF 6 /mm3 (1-10)
[2020-07-03] MEDS ORDERED: SODIUM CHLORIDE 0.9% 1000 ML 1,000 ML ONE (21:57)
--- NOTE | 2020-07-03 22:27 | History and Physical Report ---
History of Present Illness Date of examination: 07/03/20 Date of admission: 07/03/20 19:10 Chief complaint: Altered mental status for 1 day History of present illness: 40-year-old male with history of lupus, hypertension, renal insufficiency, dilated cardiomyopathy with ejection fraction of 35 to 45% patient brought in by EMS for because of increasing lethargy. Patient is slightly lethargic but easily arousable. Patient is slightly confused. The ER was concerned about lupus cerebritis. But the patient was not altered or see having seizures. No fever. No exposure to coronavirus. - Past Medical History Hypertension: Yes cardiomyopathy Renal Disease Lupu urinary incontinence, anemia - Surgical History Additional Surgical History: hernia repair x 2 - Social History Smoking Status: Never Smoker Substance Use Type: None Family history Htn - Medications Home Medications: Home Medications Medication Instructions Recorded Confirmed Last Taken Type Oxybutynin [Ditropan] 5 mg PO DAILY 03/09/18 07/03/20 03/09/18 History Ropinirole HCl [Requip] 0.5 mg PO DAILY 03/09/18 07/03/20 03/09/18 History Simvastatin 20 mg PO DAILY 03/09/18 07/03/20 03/08/18 History hydrALAZINE [Apresoline TAB] 25 mg PO TID 03/09/18 07/03/20 03/09/18 History Verapamil ER [Calan SR] 240 mg PO DAILY 05/12/18 07/03/20 Unknown History Ondansetron [Zofran TAB] 4 mg PO Q8HR PRN #15 tablet 08/15/18 07/03/20 Unknown Rx Pantoprazole [Protonix TAB] 40 mg PO DAILY #30 tablet 08/15/18 07/03/20 Unknown Rx oxyCODONE /ACETAMINOPHEN [Percocet 1 tab PO BID PRN #10 tablet 08/15/18 07/03/20 Unknown Rx 5/325 mg] Aspirin EC [Halfprin EC] 81 mg PO QDAY #30 tablet. 10/21/18 07/03/20 Unknown Rx Furosemide [Lasix] 20 mg PO QDAY #30 tablet 10/21/18 07/03/20 Unknown Rx Isosorbide Dinitrate [Isordil] 10 mg PO Q8HR #30 tablet 10/21/18 07/03/20 Unknown Rx Metoprolol Xl [Metoprolol 50 mg PO QDAY #30 tablet 10/21/18 07/03/20 Unknown Rx SUCCINATE ER TAB] traMADoL [Ultram] 50 mg PO Q6HR PRN #14 tablet 10/08/19 07/03/20 Unknown Rx Review of Systems Constitutional no weight loss or weight gain no fever or chills HEENT no sore throat no post nasal drip no diplopia Neck no neck stiffness no lymph gland enlargement Chest and lungs no shortness of breath cough or wheezing CVS no chest pain no diaphoresis no palpitations GI no nausea no vomiting no diarrhea Genitourinary system no dysuria no flank pain Musculoskeletal system no muscle pains no joint pains [employer] lethargic Skin no rash no itching Psychiatric no depression no homicidal or suicidal tendencies Hematologic no lymphedema or bruising Endocrine no polydipsia no polyuria no cold intolerance no heat intolerance Medications and Allergies Allergies Allergy/AdvReac Type Severity Reaction Status Date / Time lisinopril AdvReac Rash Verified 05/12/18 00:48 sulfamethoxazole AdvReac Unknown Verified 05/12/18 00:48 [From Bactrim] trimethoprim [From Bactrim] AdvReac Unknown Verified 05/12/18 00:48 Home Medications Medication Instructions Recorded Confirmed Last Taken Type Oxybutynin [Ditropan] 5 mg PO DAILY 03/09/18 07/03/20 03/09/18 History Ropinirole HCl [Requip] 0.5 mg PO DAILY 03/09/18 07/03/20 03/09/18 History Simvastatin 20 mg PO DAILY 03/09/18 07/03/20 03/08/18 History hydrALAZINE [Apresoline TAB] 25 mg PO TID 03/09/18 07/03/20 03/09/18 History Verapamil ER [Calan SR] 240 mg PO DAILY 05/12/18 07/03/20 Unknown History Ondansetron [Zofran TAB] 4 mg PO Q8HR PRN #15 tablet 08/15/18 07/03/20 Unknown Rx Pantoprazole [Protonix TAB] 40 mg PO DAILY #30 tablet 08/15/18 07/03/20 Unknown Rx oxyCODONE /ACETAMINOPHEN [Percocet 1 tab PO BID PRN #10 tablet 08/15/18 07/03/20 Unknown Rx 5/325 mg] Aspirin EC [Halfprin EC] 81 mg PO QDAY #30 tablet. 10/21/18 07/03/20 Unknown Rx Furosemide [Lasix] 20 mg PO QDAY #30 tablet 10/21/18 07/03/20 Unknown Rx Isosorbide Dinitrate [Isordil] 10 mg PO Q8HR #30 tablet 10/21/18 07/03/20 Unknown Rx Metoprolol Xl [Metoprolol 50 mg PO QDAY #30 tablet 10/21/18 07/03/20 Unknown Rx SUCCINATE ER TAB] traMADoL [Ultram] 50 mg PO Q6HR PRN #14 tablet 10/08/19 07/03/20 Unknown Rx Exam - Constitutional Vitals: Temp Pulse Resp BP Pulse Ox 98.8 F 88 18 139/98 98 07/03/20 17:10 07/03/20 21:39 07/03/20 21:39 07/03/20 21:39 07/03/20 21:39 General appearance: Present: no acute distress, well-nourished - EENT Eyes: Present: PERRL ENT: hearing intact, clear oral mucosa - Neck Neck: Present: supple, normal ROM - Respiratory Respiratory effort: normal Respiratory: bilateral: CTA - Cardiovascular Heart rate: 78 Rhythm: regular Heart Sounds: Present: S1 & S2. Absent: rub, click - Extremities Extremities: no ischemia, pulses intact, pulses symmetrical, No edema Peripheral Pulses: within normal limits - Abdominal General gastrointestinal: Present: soft, non-tender, non-distended, normal bowel sounds Male genitourinary: Present: normal - Integumentary Integumentary: Present: clear, warm, dry - Musculoskeletal Musculoskeletal: gait normal, strength equal bilaterally - Psychiatric Psychiatric: appropriate mood/affect, intact judgment & insight - Neurologic Neurologic: CNII-XII intact, moves all extremities - Allied Health Allied health notes reviewed: nursing, case management HEART Score - HEART Score Troponin: Troponin T 0.368 ng/mL (0.00-0.029) H* 07/03/20 17:33 Results - Labs CBC & Chem 7: 07/05/20 06:54 07/03/20 17:33 Labs: Laboratory Last Values WBC 6.9 K/mm3 (4.5-11.0) 07/03/20 17:33 RBC 4.28 M/mm3 (3.65-5.03) 07/03/20 17:33 Hgb 12.2 gm/dl (11.8-15.2) 07/03/20 17:33 Hct 36.9 % (35.5-45.6) 07/03/20 17:33 MCV 86 fl (84-94) 07/03/20 17:33 MCH 29 pg (28-32) 07/03/20 17:33 MCHC 33 % (32-34) 07/03/20 17: RDW 20.6 % (13.2-15.2) H 07/03/20 17:33 Plt Count 156 K/mm3 (140-440) 07/03/20 17:33 [place] % (Auto) Chief Librarian Extension Department 07/03/20 17:33 Add Manual Diff Complete 07/03/20 17:33 Total Counted 100 07/03/20 17:33 Seg Neuts % (Manual) 74.0 % (40.0-70.0) H 07/03/20 17:33 Band Neutrophils % 0 % 07/03/20 17:33 Lymphocytes % (Manual) 17.0 % (13.4-35.0) 07/03/20 17:33 Reactive Lymphs % (Man) 1.0 % 07/03/20 17:33 Monocytes % (Manual) 4.0 % (0.0-7.3) 07/03/20 17:33 Eosinophils % (Manual) 3.0 % (0.0-4.3) 07/03/20 17:33 Basophils % (Manual) 0 % (0.0-1.8) 07/03/20 17:33 Metamyelocytes % 1.0 % 07/03/20 17:33 Myelocytes % 0 % 07/03/20 17:33 Promyelocytes % 0 % 07/03/20 17:33 Blast Cells % 0 % 07/03/20 17:33 Nucleated RBC % Not Reportable 07/03/20 17: Seg Neutrophils # Man 5.1 K/mm3 (1.8-7.7) 07/03/20 17:33 Band Neutrophils # 0.0 K/mm3 07/03/20 17:33 Lymphocytes # (Manual) 1.2 K/mm3 (1.2-5.4) 07/03/20 17:33 Abs React Lymphs (Man) 0.1 K/mm3 07/03/20 17:33 Monocytes # (Manual) 0.3 K/mm3 (0.0-0.8) 07/03/20 17:33 Eosinophils # (Manual) 0.2 K/mm3 (0.0-0.4) 07/03/20 17:33 Basophils # (Manual) 0.0 K/mm3 (0.0-0.1) 07/03/20 17:33 Metamyelocytes # 0.1 K/mm3 07/03/20 17:33 Myelocytes # 0.0 K/mm3 07/03/20 17:33 Promyelocytes # 0.0 K/mm3 07/03/20 17:33 Blast Cells # 0.0 K/mm3 07/03/20 17:33 WBC Morphology Not Reportable 07/03/20 17:33 WBC Morphology TNR 07/03/20 17:33 Hypersegmented Neuts Not Reportable 07/03/20 17:33 Hyposegmented Neuts Not Reportable 07/03/20 17:33 Hypogranular Neuts Not Reportable 07/03/20 17:33 Smudge Cells Not Reportable 07/03/20 17:33 Toxic Granulation Not Reportable 07/03/20 17:33 Toxic Vacuolation Not Reportable 07/03/20 17:33 Dohle Bodies Not Reportable 07/03/20 17:33 Pelger-Huet Anomaly Not Reportable 07/03/20 17:33 Lisa Rods Not Reportable 07/03/20 17:33 Platelet Estimate Consistent w auto 07/03/20 17:33 Clumped Platelets Not Reportable 07/03/20 17:33 Plt Clumps, EDTA Not Reportable 07/03/20 17:33 Large Platelets Not Reportable 07/03/20 17:33 Giant Platelets Not Reportable 07/03/20 17:33 Platelet Satelliting Not Reportable 07/03/20 17:33 Plt Morphology Comment Not Reportable 07/03/20 17:33 RBC Morphology Not Reportable 07/03/20 17:33 Dimorphic RBCs Not Reportable 07/03/20 17:33 Polychromasia Not Reportable 07/03/20 17:33 Hypochromasia Few 07/03/20 17:33 Poikilocytosis Not Reportable 07/03/20 17:33 Anisocytosis Not Reportable 07/03/20 17:33 Microcytosis Not Reportable 07/03/20 17:33 Macrocytosis Not Reportable 07/03/20 17:33 Spherocytes Not Reportable 07/03/20 17:33 Pappenheimer Bodies Not Reportable 07/03/20 17:33 Sickle Cells Not Reportable 07/03/20 17:33 Target Cells Few 07/03/20 17:33 Tear Drop Cells Not Reportable 07/03/20 17:33 Ovalocytes Not Reportable 07/03/20 17:33 Helmet Cells Not Reportable 07/03/20 17:33 [place] Bodies Not Reportable 07/03/20 17:33 [place] Rings Not Reportable 07/03/20 17:33 Dre Cells Not Reportable 07/03/20 17:33 Bite Cells Not Reportable 07/03/20 17:33 Crenated Cell Not Reportable 07/03/20 17:33 Elliptocytes Few 07/03/20 17:33 Acanthocytes (Spur) Not Reportable 07/03/20 17:33 Rouleaux Not Reportable 07/03/20 17:33 Hemoglobin C Crystals Not Reportable 07/03/20 17:33 Schistocytes Not Reportable 07/03/20 17:33 Malaria parasites Not Reportable 07/03/20 17:33 Lalo Bodies Not Reportable 07/03/20 17:33 Hem Pathologist Commnt No 07/03/20 17:33 PT 13.9 Sec. (12.2-14.9) 07/03/20 17:33 INR 1.06 (0.87-1.13) 07/03/20 17:33 APTT 24.8 Sec. (24.2-36.6) 07/03/20 17:33 Sodium 142 mmol/L (137-145) 07/03/20 17:33 Potassium 3.5 mmol/L (3.6-5.0) L 07/03/20 17:33 Chloride 106.7 mmol/L (98-107) 07/03/20 17:33 Carbon Dioxide 19 mmol/L (22-30) L 07/03/20 17:33 Anion Gap 20 mmol/L 07/03/20 17:33 BUN 20 mg/dL (9-20) 07/03/20 17:33 Creatinine 1.8 mg/dL (0.8-1.3) H 07/03/20 17:33 Estimated GFR 51 ml/min 07/03/20 17:33 BUN/Creatinine Ratio 11 % 07/03/20 17:33 Glucose 105 mg/dL (75-100) H 07/03/20 17:33 Lactic Acid 2.90 mmol/L (0.7-2.0) H* 07/03/20 17:33 Calcium 7.6 mg/dL (8.4-10.2) L 07/03/20 17:33 Magnesium 2.30 mg/dL (1.7-2.3) 07/03/20 17:33 Total Bilirubin 0.20 mg/dL (0.1-1.2) 07/03/20 17:33 AST 29 units/L (5-40) 07/03/20 17:33 ALT 13 units/L (7-56) 07/03/20 17:33 Alkaline Phosphatase 155 units/L (35-129) H 07/03/20 17:33 Ammonia 40.0 umol/L (25-60) 07/03/20 17:33 Total Creatine Kinase 185 units/L (55-170) H 07/03/20 17:33 Troponin T 0.368 ng/mL (0.00-0.029) H* 07/03/20 17:33 Total Protein 6.9 g/dL (6.3-8.2) 07/03/20 17:33 Albumin 3.1 g/dL (3.9-5) L 07/03/20 17:33 Albumin/Globulin Ratio 0.8 % 07/03/20 17:33 Triglycerides 216 mg/dL (2-149) H 07/03/20 17:33 Cholesterol 206 mg/dL (50-199) H 07/03/20 17:33 LDL Cholesterol Direct 120 mg/dL (50-130) 07/03/20 17:33 HDL Cholesterol 56 mg/dL (40-59) 07/03/20 17:33 Cholesterol/HDL Ratio 3.67 % 07/03/20 17:33 TSH 0.164 mlU/mL (0.270-4.200) L 07/03/20 17:33 Free T4 1.01 ng/dL (0.76-1.46) 07/03/20 17:33 Urine Color Yellow (Yellow) 07/03/20 17:30 Urine Turbidity Cloudy (Clear) 07/03/20 17:30 Urine pH 6.0 (5.0-7.0) 07/03/20 17:30 Ur Specific [place] 1.009 (1.003-1.030) 07/03/20 17:30 Urine Protein 100 mg/dl mg/dL (Negative) 07/03/20 17:30 Urine Glucose (UA) Neg mg/dL (Negative) 07/03/20 17:30 Urine Ketones Neg mg/dL (Negative) 07/03/20 17:30 Urine Blood Sm (Negative) 07/03/20 17:30 Urine Nitrite Neg (Negative) 07/03/20 17:30 Urine Bilirubin Neg (Negative) 07/03/20 17:30 Urine Urobilinogen < 2.0 mg/dL (<2.0) 07/03/20 17:30 Ur Leukocyte Esterase Lg (Negative) 07/03/20 17:30 Urine WBC (Auto) > 182.0 /HPF (0.0-6.0) H 07/03/20 17:30 Urine RBC (Auto) 4.0 /HPF (0.0-6.0) 07/03/20 17:30 U Epithel Cells (Auto) 2.0 /HPF (0-13.0) 07/03/20 17:30 Urine Bacteria (Auto) 4+ /HPF (Negative) 07/03/20 17:30 Urine WBC Clumps 3+ /HPF 07/03/20 17:30 Urine Mucus Few /HPF 07/03/20 17:30 CSF Appearance Clear 07/03/20 Unknown CSF Color Colorless 07/03/20 Unknown CSF WBC 6 /mm3 (1-10) 07/03/20 Unknown CSF RBC 0 /mm3 (0-0) 07/03/20 Unknown CSF Seg Neutrophils 0 % (0-6) 07/03/20 Unknown CSF Lymphocytes % 84 % (40-80) 07/03/20 Unknown CSF Reactive Lymphs 0 % 07/03/20 Unknown CSF Monocytes % 16 % (15-45) 07/03/20 Unknown CSF Eosinophils % 0 % 07/03/20 Unknown CSF Basophils 0 % 07/03/20 Unknown CSF Pathologist Review C 07/03/20 Unknown CSF Glucose 59 mg/dL 07/03/20 Unknown CSF Total Protein 65 mg/dL 07/03/20 Unknown Salicylates < 0.3 mg/dL (2.8-20.0) L 07/03/20 17:33 Acetaminophen 5.0 ug/mL (10.0-30.0) L 07/03/20 17:33 Blood Type B POSITIVE 07/03/20 17:42 Antibody Screen Negative 07/03/20 17:42 Short CBC 07/05/20 Range/Units 06:54 WBC 3.7 L (4.5-11.0) K/mm3 Hgb 11.8 (11.8-15.2) gm/dl Hct 35.9 (35.5-45.6) % Plt Count 135 L (140-440) K/mm3 Cardiac Enzymes 07/04/20 Range/Units 08:41 Troponin T 0.229 H* (0.00-0.029) ng/mL Microbiology: Microbiology 07/03/20 17:33 Peripheral/Venous Blood Culture - Preliminary Culture in Progress 07/03/20 17:33 Peripheral/Venous Blood Culture - Preliminary Culture in Progress - Imaging and Cardiology Imaging and Cardiology: Chest x-ray No acute findings Head CT No acute intracranial abnormality Mild cerebral atrophy is noted Vaughn/IV: IV Catheter Type [Right INT / Saline Lock Antecubital] Assessment and Plan Advance Directives: Yes - Patient Problems (1) Acute encephalopathy Current Visit: Yes Status: Acute Plan to address problem: Secondary to UTI and Sirs-systemic inflammatory response syndrome consistent with toxic metabolic encephalopathy (2) SIRS (systemic inflammatory response syndrome) Current Visit: Yes Status: Acute Plan to address problem: Patient lactic acid is high white count is normal (3) Acute kidney injury Current Visit: No Status: Acute Plan to address problem: IV Fluids for now (4) UTI (urinary tract infection) Current Visit: Yes Status: Acute Plan to address problem: IV Rocephin for now pending urine cultures (5) Lupus (systemic lupus erythematosus) Current Visit: Yes Status: Chronic Qualifiers: Systemic lupus erythematosus type: unspecified Plan to address problem: I do not agree with any lupus flareup Altered mental status secondary to urinary tract infection and elevated lactic acid, Sirs CSF was negative (6) Hypertension Current Visit: No Status: Chronic Qualifiers: Hypertension type: essential hypertension Qualified Code(s): I10 - Es sential (primary) hypertension Plan to address problem: Continue antihypertensives (7) Cardiomyopathy Current Visit: Yes Status: Chronic Qualifiers: Cardiomyopathy type: unspecified Qualified Code(s): I42.9 - Cardiomyopathy, unspecified Plan to address problem: Continue Lasix Repeat echocardiogram (8) Elevated troponin level Current Visit: Yes Status: Acute Plan to address problem: Probably nonspecific Will defer to cardiology (9) DVT prophylaxis Current Visit: Yes Status: Acute Plan to address problem: On heparin and GI prophylaxis
[2020-07-03 22:29] LABS: Amphetamine Screen,Urine Negative; Benzodiazepines Screen,Urine Negative; Cannabinoid Screen,Urine Negative; Cocaine Screen,Urine Negative; Methadone Screen,Urine Negative; Opiate Screen,Urine Negative
[2020-07-04] MEDS ORDERED: ONDANSETRON 4 MG/2 ML INJ IV PRN (01:25)
[2020-07-04] MEDS ORDERED: ACETAMINOPHEN 325 MG TAB PO PRN (01:25)
[2020-07-04] MEDS ORDERED: oxyCODONE /ACETAMINOPHEN 5-325MG TAB PO PRN (01:25)
[2020-07-04] MEDS ORDERED: HYDROmorphone 1 MG/1 ML INJ IV PRN (01:25)
[2020-07-04] MEDS: SODIUM CHLORIDE 0.9% 1000 ML 1,000 ML IV SCH (05:30)
--- NOTE | 2020-07-04 10:20 | Consultation ---
History of Present Illness Consult date: 07/04/20 Consult reason: elevated troponin, other (abnormal ECG) History of present illness: This is a 40 year old male with a history of dilated nonischemic cardiomyopathy by lexiscan thallium test done a year and a half ago that showed no ischemia but a decreased left ventricular ejection fraction 30-35% by echocardiogram. A follow up echocardiogram done 6 months later reports resolving cardiomyopathy, with a normal left ventricular ejection fraction. Co-morbidities includes discoid lupus, chronic hypertension, hyperlipidemia and chronic kidney disease. Patient was brought to this hospital with altered mental status. Head CT scan reports no acute intracranial abnormalities and a chest x-ray was normal. Initial labs shows lactic acidosis and elevation of troponin levels. He has a creatinine of 1.8. There were no reports of chest pain or unusual shortness of breath. Lower extremity edema has resolved. An ECG is sinus tachycardia with LVH and nonspecific Twave abnormalities. Rate 110. Medications and Allergies Allergies Allergy/AdvReac Type Severity Reaction Status Date / Time lisinopril AdvReac Rash Verified 05/12/18 00:48 sulfamethoxazole AdvReac Unknown Verified 05/12/18 00:48 [From Bactrim] trimethoprim [From Bactrim] AdvReac Unknown Verified 05/12/18 00:48 Home Medications Medication Instructions Recorded Confirmed Last Taken Type Oxybutynin [Ditropan] 5 mg PO DAILY 03/09/18 07/03/20 03/09/18 History Ropinirole HCl [Requip] 0.5 mg PO DAILY 03/09/18 07/03/20 03/09/18 History Simvastatin 20 mg PO DAILY 03/09/18 07/03/20 03/08/18 History hydrALAZINE [Apresoline TAB] 25 mg PO TID 03/09/18 07/03/20 03/09/18 History Verapamil ER [Calan SR] 240 mg PO DAILY 05/12/18 07/03/20 Unknown History Ondansetron [Zofran TAB] 4 mg PO Q8HR PRN #15 tablet 08/15/18 07/03/20 Unknown Rx Pantoprazole [Protonix TAB] 40 mg PO DAILY #30 tablet 08/15/18 07/03/20 Unknown Rx oxyCODONE /ACETAMINOPHEN [Percocet 1 tab PO BID PRN #10 tablet 08/15/18 07/03/20 Unknown Rx 5/325 mg] Aspirin EC [Halfprin EC] 81 mg PO QDAY #30 tablet. 10/21/18 07/03/20 Unknown Rx Furosemide [Lasix] 20 mg PO QDAY #30 tablet 10/21/18 07/03/20 Unknown Rx Isosorbide Dinitrate [Isordil] 10 mg PO Q8HR #30 tablet 10/21/18 07/03/20 Unknown Rx Metoprolol Xl [Metoprolol 50 mg PO QDAY #30 tablet 10/21/18 07/03/20 Unknown Rx SUCCINATE ER TAB] traMADoL [Ultram] 50 mg PO Q6HR PRN #14 tablet 10/08/19 07/03/20 Unknown Rx Active Meds: Active Medications Acetaminophen (Tylenol) 650 mg PO Q4H PRN PRN Reason: Pain MILD(1-3)/Fever >100.5/CADET Famotidine (Pepcid) 20 mg IV BID ADIA Hydromorphone HCl (Dilaudid) 0.5 mg IV Q3H PRN PRN Reason: Pain , Severe (7-10) Sodium Chloride (Nacl 0.9% 1000 Ml) 1,000 mls @ 100 mls/hr IV DIRECT ADIA Last Admin: 07/04/20 05:30 Dose: 100 mls/hr Documented by: Ceftriaxone Sodium (Rocephin/Ns 2 Gm/100 Ml) 2 gm in 100 mls @ 200 mls/hr IV Q24HR ADIA; Protocol Ondansetron HCl (Zofran) 4 mg IV Q8H PRN PRN Reason: Nausea And Vomiting Oxycodone/Acetaminophen (Percocet 5/325) 1 tab PO Q6H PRN PRN Reason: Pain, Moderate (4-6) Sodium Chloride (Sodium Chloride Flush Syringe 10 Ml) 10 ml IV BID ADIA Sodium Chloride (Sodium Chloride Flush Syringe 10 Ml) 10 ml IV PRN PRN PRN Reason: LINE FLUSH Physical Examination Vital Signs Resp Pulse Ox 23 96 07/03/20 17:08 07/03/20 17:08 General appearance: no acute distress HEENT: Positive: PERRL Neck: Positive: trachea midline Cardiac: Positive: Reg Rate and Rhythm Lungs: Positive: Decreased Breath Sounds Neuro: Positive: Weakness Extremities: Absent: edema Results 07/03/20 17:33 07/03/20 17:33 Cardiac Enzymes 07/03/20 Range/Units 17:33 AST 29 (5-40) units/L Coagulation 07/03/20 Range/Units 17:33 PT 13.9 (12.2-14.9) Sec. INR 1.06 (0.87-1.13) APTT 24.8 (24.2-36.6) Sec. Lipids 07/03/20 Range/Units 17:33 Triglycerides 216 H (2-149) mg/dL Cholesterol 206 H (50-199) mg/dL HDL Cholesterol 56 (40-59) mg/dL Cholesterol/HDL Ratio 3.67 % CBC 07/03/20 Range/Units 17:33 WBC 6.9 (4.5-11.0) K/mm3 RBC 4.28 (3.65-5.03) M/mm3 Hgb 12.2 (11.8-15.2) gm/dl Hct 36.9 (35.5-45.6) % Plt Count 156 (140-440) K/mm3 Comprehensive Metabolic Panel 07/03/20 Range/Units 17:33 Sodium 142 (137-145) mmol/L Potassium 3.5 L (3.6-5.0) mmol/L Chloride 106.7 (98-107) mmol/L Carbon Dioxide 19 L (22-30) mmol/L BUN 20 (9-20) mg/dL Creatinine 1.8 H (0.8-1.3) mg/dL Glucose 105 H (75-100) mg/dL Calcium 7.6 L (8.4-10.2) mg/dL AST 29 (5-40) units/L ALT 13 (7-56) units/L Alkaline Phosphatase 155 H (35-129) units/L Total Protein 6.9 (6.3-8.2) g/dL Albumin 3.1 L (3.9-5) g/dL Assessment and Plan Elevated troponin pt denies chest pain Lactid acidosis Acute encephalopathy -resolved head CT scan: no acute intracranial abnormalities Hx of resolving CMP no ischemia by MPI 10/2018 LVEF 30-35% by echo 10/2018 Normal LVEF by re-echo 03/2019 Chronic renal disease Hypertension Hx of Discoid Lupus HLP Will obtain an echo for cardiac assessment.
[2020-07-04] MEDS: FAMOTIDINE 20 MG/2 ML INJ IV SCH ×2 (10:41→22:50)
[2020-07-04] MEDS: cefTRIAXone/NS 2 GM/100 ML 2 GM/100 ML BAG IV SCH (10:42)
[2020-07-05] MEDS ORDERED: hydrALAZINE 20 MG/1 ML INJ IV ONE (01:16)
[2020-07-05] MEDS: hydrALAZINE 20 MG/1 ML INJ IV PRN ×2 (06:30→12:15)
[2020-07-05 07:23] LABS: Hematocrit 35.9 % (35.5-45.6); Hemoglobin 11.8 gm/dl (11.8-15.2); Mean Corpuscular HGB Conc 33 % (32-34); Mean Corpuscular Volume 86 fl (84-94); Platelet Count 135 K/mm3 (140-440); Red Blood Count 4.18 M/mm3 (3.65-5.03)
[2020-07-05 07:31] LABS: Red Cell Distribution Width 20.8 % (13.2-15.2)
--- NOTE | 2020-07-05 07:59 | Progress Note ---
Assessment and Plan - Patient Problems (1) Acute encephalopathy Current Visit: Yes Status: Acute Plan to address problem: Secondary to UTI and Sirs-systemic inflammatory response syndrome consistent with toxic metabolic encephalopathy (2) SIRS (systemic inflammatory response syndrome) Current Visit: Yes Status: Acute Plan to address problem: Patient lactic acid is high white count is normal (3) Acute kidney injury Current Visit: No Status: Acute Plan to address problem: IV Fluids for now (4) UTI (urinary tract infection) Current Visit: Yes Status: Acute Plan to address problem: IV Rocephin for now pending urine cultures (5) Lupus (systemic lupus erythematosus) Current Visit: Yes Status: Chronic Qualifiers: Systemic lupus erythematosus type: unspecified Plan to address problem: I do not agree with any lupus flareup Altered mental status secondary to urinary tract infection and elevated lactic acid, Sirs CSF was negative (6) Hypertension Current Visit: No Status: Chronic Qualifiers: Hypertension type: essential hypertension Qualified Code(s): I10 - Essential (primary) hypertension Plan to address problem: Continue antihypertensives (7) Cardiomyopathy Current Visit: Yes Status: Chronic Qualifiers: Cardiomyopathy type: unspecified Qualified Code(s): I42.9 - Cardiomyopathy, unspecified Plan to address problem: Continue Lasix Repeat echocardiogram (8) Elevated troponin level Current Visit: Yes Status: Acute Plan to address problem: Probably nonspecific Will defer to cardiology (9) DVT prophylaxis Current Visit: Yes Status: Acute Plan to address problem: On heparin and GI prophylaxis Subjective Date of service: 07/04/20 Principal diagnosis: Acute encephalopathy, UTI Interval history: Patient admitted for urinary tract infection and acute encephalopathy with the possibility of lupus flare Patient doing better Objective - Constitutional Vitals: Vital Signs - 12hr 07/04/20 07/04/20 07/04/20 20:00 22:00 23:18 Temperature 98 F 98.1 F Pulse Rate 97 H 68 Respiratory 16 18 Rate Blood Pressure 190/117 Blood Pressure 178/107 [Left] O2 Sat by Pulse 99 99 96 Oximetry 07/05/20 07/05/20 07/05/20 01:30 03:01 04:00 Temperature 98.0 F Pulse Rate 66 97 H 97 H Respiratory 18 Rate Blood Pressure 190/112 180/109 Blood Pressure [Left] O2 Sat by Pulse 97 Oximetry 07/05/20 06:30 Temperature Pulse Rate 85 Respiratory Rate Blood Pressure 188/118 Blood Pressure [Left] O2 Sat by Pulse Oximetry General appearance: Present: no acute distress, well-nourished - EENT Eyes: PERRL, EOM intact ENT: hearing intact, clear oral mucosa Ears: bilateral: normal - Neck Neck: supple, normal ROM - Respiratory Respiratory effort: normal Respiratory: bilateral: CTA - Breasts Breasts: normal - Cardiovascular Heart rate: 78 Rhythm: regular Heart Sounds: Present: S1 & S2. Absent: gallop, rub Extremities: pulses intact, No edema, normal color, Full ROM - Gastrointestinal General gastrointestinal: Present: soft, non-tender, non-distended, normal bowel sounds - Genitourinary Male genitourinary: normal - Integumentary Integumentary: clear, warm, dry - Musculoskeletal Musculoskeletal: 1, strength equal bilaterally - Neurologic Neurologic: moves all extremities - Psychiatric Psychiatric: memory intact, appropriate mood/affect, intact judgment & insight - Labs CBC & Chem 7: 07/05/20 06:54 07/03/20 17:33 Labs: Abnormal lab results 07/04/20 07/04/20 07/04/20 Range/Units 08:41 08:41 14:34 WBC (4.5-11.0) K/mm3 RDW (13.2-15.2) % Plt Count (140-440) K/mm3 Lactic Acid 3.20 H* 2.50 H* (0.7-2.0) mmol/L Troponin T 0.229 H* (0.00-0.029) ng/mL 07/04/20 07/04/20 07/05/20 Range/Units 16:31 18:54 06:54 WBC 3.7 L (4.5-11.0) K/mm3 RDW 20.8 H (13.2-15.2) % Plt Count 135 L (140-440) K/mm3 Lactic Acid 2.20 H* 3.90 H* (0.7-2.0) mmol/L Troponin T (0.00-0.029) ng/mL HEART Score - HEART Score Troponin: Troponin T 0.229 ng/mL (0.00-0.029) H* 07/04/20 08:41
[2020-07-05 08:00] LABS: Albumin 2.9 g/dL (3.9-5); Calcium 8.1 mg/dL (8.4-10.2)
[2020-07-05 08:52] LABS: Anisocytosis 1+; Basophils % (Manual) 0 % (0.0-1.8); Eosinophils % (Manual) 0 % (0.0-4.3); Platelet Estimate Consistent w Auto; Total Cells Counted 100
[2020-07-05] MEDS ORDERED: METOPROLOL TARTRATE 5 MG/5 ML INJ IV NR (09:15)
[2020-07-05] MEDS: cefTRIAXone/NS 2 GM/100 ML 2 GM/100 ML BAG IV SCH (09:36)
[2020-07-05] MEDS: FAMOTIDINE 20 MG/2 ML INJ IV SCH (09:36)
[2020-07-05] MEDS: ASPIRIN EC 81 MG TAB PO SCH (09:36)
[2020-07-05] MEDS: HEPARIN 5,000 UNIT/1 ML VIAL SUB-Q SCH ×2 (09:36→21:44)
--- NOTE | 2020-07-05 09:42 | Progress Note ---
Assessment and Plan - Patient Problems (1) Supraventricular tachycardia Current Visit: Yes Status: Acute Plan to address problem: We will get a stat twelve-lead EKG, and treat the patient with intravenous metoprolol followed by metoprolol 50 mg p.o. every 8 hours for prophylaxis of SVT. The patient is currently on verapamil which will be stopped. (2) Uncontrolled hypertension Current Visit: Yes Status: Acute Plan to address problem: For uncontrolled hypertension we will use Procardia XL 60 mg twice daily. (3) Elevated troponin level Current Visit: Yes Status: Acute Plan to address problem: Nonspecific troponin elevation will be treated conservatively. Echocardiogram on this presentation shows normal left ventricular systolic function, ejection fraction 55 to 60%. Subjective Date of service: 07/05/20 Principal diagnosis: Acute encephalopathy, UTI Interval history: This morning, the patient developed sudden onset tachycardia. It has the morphology of a supraventricular tachycardia with a rate of 140. Cannot exclude atrial flutter with 2-1 conduction. A 12-lead EKG was ordered stat and is pending. The patient is otherwise comfortable on bedrest, and blood pressure is elevated at 180 systolic. Echocardiogram done yesterday was normal left ventricular systolic function with ejection fraction 55 to 60%, no significant valvular abnormalities. Objective Vital Signs Temp Pulse Resp BP BP Pulse Ox 07/05/20 09:35 99 07/05/20 08:38 98.3 F 130 H 18 224/123 99 07/05/20 06:30 85 188/118 07/05/20 04:00 97 H 07/05/20 03:01 98.0 F 97 H 18 180/109 97 07/05/20 01:30 66 190/112 07/04/20 23:18 98.1 F 68 18 190/117 96 07/04/20 22:00 99 07/04/20 20:00 98 F 97 H 16 178/107 99 07/04/20 19:36 98.2 F 83 16 201/113 97 07/04/20 15:34 98.3 F 80 20 193/106 99 - Physical Examination General: No Apparent Distress HEENT: Positive: PERRL Neck: Positive: trachea midline Cardiac: Positive: Tachycardia Lungs: Positive: Decreased Breath Sounds Neuro: Positive: Grossly Intact Abdomen: Positive: Soft Skin: Positive: Other (Skin discoloration associated with lupus) Extremities: Absent: edema - Labs and Meds Cardiac Enzymes 07/05/20 Range/Units 06:54 AST 17 (5-40) units/L CBC 07/05/20 Range/Units 06:54 WBC 3.7 L (4.5-11.0) K/mm3 RBC 4.18 (3.65-5.03) M/mm3 Hgb 11.8 (11.8-15.2) gm/dl Hct 35.9 (35.5-45.6) % Plt Count 135 L (140-440) K/mm3 Comprehensive Metabolic Panel 07/05/20 Range/Units 06:54 Sodium 140 (137-145) mmol/L Potassium 3.5 L (3.6-5.0) mmol/L Chloride 107.5 H (98-107) mmol/L Carbon Dioxide 18 L (22-30) mmol/L BUN 20 (9-20) mg/dL Creatinine 1.6 H (0.8-1.3) mg/dL Glucose 82 (75-100) mg/dL Calcium 8.1 L (8.4-10.2) mg/dL AST 17 (5-40) units/L ALT 8 (7-56) units/L Alkaline Phosphatase 150 H (35-129) units/L Total Protein 6.0 L (6.3-8.2) g/dL Albumin 2.9 L (3.9-5) g/dL
[2020-07-05] MEDS ORDERED: NON-FORMULARY EACH (Simvastatin [Simvastatin] 20 MG) PO SCH (10:00)
[2020-07-05] MEDS ORDERED: VERAPAMIL ER 240 MG TAB PO SCH (10:00)
[2020-07-05] MEDS: METOPROLOL TARTRATE 50 MG TAB PO SCH ×2 (10:05→17:16)
[2020-07-05] MEDS: NIFEdipine XL 60 MG TAB PO SCH ×2 (10:05→21:40)
[2020-07-05] MEDS: hydrALAZINE 25 MG TAB PO SCH ×2 (13:44→21:40)
[2020-07-05] MEDS ORDERED: ISOSORBIDE DINITRATE 10 MG TAB PO SCH (14:00)
--- NOTE | 2020-07-05 17:50 | Progress Note ---
Assessment and Plan - Patient Problems (1) Acute encephalopathy Current Visit: Yes Status: Acute Plan to address problem: Acute encephalopathy secondary to UTI with chronic kidney disease has resolved. Alert and oriented x3. (2) CRF (chronic renal failure) Current Visit: Yes Status: Acute Plan to address problem: Patient around baseline creatinine of 1.4 at 1.5. (3) Elevated troponin level Current Visit: Yes Status: Acute (4) SIRS (systemic inflammatory response syndrome) Current Visit: Yes Status: Acute Plan to address problem: Secondary to UTI. Patient states he has chronic UTI. Should follow-up outpatient to evaluate why patient has recurrent UTI should see urology outpatient Dr. Miller. (5) SLE (systemic lupus erythematosus) Current Visit: Yes Status: Acute Plan to address problem: Patient is currently not having a lupus flare. Stable to be discharge in a.m. if tachycardia is stable. (6) Supraventricular tachycardia Current Visit: Yes Status: Acute Plan to address problem: Patient with SVT. Evaluated by cardiology. Was 130. Had evidence of new right bundle branch block on EKG. Now evaluated by cardiology echocardiogram initially showed ejection fraction of 40%. No ischemia on Lexiscan. New follow-up echo was normal ejection fraction. Appears to be controlled with beta-farzana AV jane blocking agent. (7) UTI (urinary tract infection) Current Visit: Yes Status: Acute Plan to address problem: UTI continue treatment Rocephin. Patient has recurrent UTI should be to be discharged tomorrow we will consider empiric antibiotic Macrobid with discharge. Patient is allergic to Bactrim. (8) Uncontrolled hypertension Current Visit: Yes Status: Acute Plan to address problem: Add calcium channel farzana as well patient was on diltiazem prior. Subjective Date of service: 07/05/20 Principal diagnosis: Acute encephalopathy, UTI Interval history: 40-year-old male with a history of lupus hypertension chronic kidney disease presented with altered mental status thought to be secondary to metabolic encephalopathy from UTI. This has resolved patient is alert oriented x3. Hospital course complicated by episode of sinus tachycardia which was evaluated by cardiology. At present heart rate is normal 85. No chest pain no shortness of breath no altered mental status. Objective - Constitutional Vitals: Vital Signs - 12hr 07/05/20 07/05/20 07/05/20 06:30 08:38 09:35 Temperature 98.3 F Pulse Rate 85 130 H Respiratory 18 Rate Blood Pressure 188/118 224/123 Blood Pressure [Left] O2 Sat by Pulse 99 99 Oximetry 07/05/20 07/05/20 07/05/20 10:05 10:16 12:02 Temperature 98 F Pulse Rate 99 H 94 H Respiratory 18 18 Rate Blood Pressure 172/115 Blood Pressure 171/120 [Left] O2 Sat by Pulse 97 Oximetry 07/05/20 07/05/20 07/05/20 12:15 13:44 13:45 Temperature Pulse Rate 94 H 104 H Respiratory Rate Blood Pressure 171/120 138/83 138/83 Blood Pressure [Left] O2 Sat by Pulse Oximetry 07/05/20 07/05/20 17:06 17:16 Temperature 98.2 F Pulse Rate 102 H 103 H Respiratory 18 Rate Blood Pressure 130/82 138/82 Blood Pressure [Left] O2 Sat by Pulse 98 Oximetry General appearance: Present: no acute distress, well-nourished - EENT Eyes: PERRL, EOM intact ENT: hearing intact, clear oral mucosa Ears: bilateral: normal - Neck Neck: supple, normal ROM - Respiratory Respiratory effort: normal Respiratory: bilateral: CTA - Breasts Breasts: normal - Cardiovascular Rhythm: regular Heart Sounds: Present: S1 & S2. Absent: gallop, rub Extremities: pulses intact, No edema, normal color, Full ROM - Gastrointestinal General gastrointestinal: Present: soft, non-tender, non-distended, normal bowel sounds - Genitourinary Male genitourinary: normal - Integumentary Integumentary: clear, warm, dry - Musculoskeletal Musculoskeletal: 1, strength equal bilaterally - Neurologic Neurologic: moves all extremities - Psychiatric Psychiatric: memory intact, appropriate mood/affect, intact judgment & insight - Labs CBC & Chem 7: 07/05/20 06:54 07/05/20 06:54 Labs: Abnormal lab results 07/04/20 07/05/20 07/05/20 Range/Units 18:54 06:54 06:54 WBC 3.7 L (4.5-11.0) K/mm3 RDW 20.8 H (13.2-15.2) % Plt Count 135 L (140-440) K/mm3 Seg Neuts % (Manual) 71.0 H (40.0-70.0) % Lymphocytes # (Manual) 0.9 L (1.2-5.4) K/mm3 Potassium 3.5 L (3.6-5.0) mmol/L Chloride 107.5 H (98-107) mmol/L Carbon Dioxide 18 L (22-30) mmol/L Creatinine 1.6 H (0.8-1.3) mg/dL Lactic Acid 3.90 H* (0.7-2.0) mmol/L Calcium 8.1 L (8.4-10.2) mg/dL Alkaline Phosphatase 150 H (35-129) units/L Total Protein 6.0 L (6.3-8.2) g/dL Albumin 2.9 L (3.9-5) g/dL HEART Score - HEART Score Troponin: Troponin T 0.229 ng/mL (0.00-0.029) H* 07/04/20 08:41
[2020-07-05] MEDS: FAMOTIDINE 20 MG TAB PO SCH (21:40)
[2020-07-05] MEDS ORDERED: PRAVASTATIN 40 MG TAB PO SCH (22:00)
[2020-07-06] MEDS: METOPROLOL TARTRATE 50 MG TAB PO SCH ×2 (03:00→10:13)
[2020-07-06] MEDS: FAMOTIDINE 20 MG TAB PO SCH (09:59)
[2020-07-06] MEDS: NIFEdipine XL 60 MG TAB PO SCH (09:59)
[2020-07-06] MEDS: ASPIRIN EC 81 MG TAB PO SCH (10:00)
[2020-07-06] MEDS: cefTRIAXone/NS 2 GM/100 ML 2 GM/100 ML BAG IV SCH (10:01)
[2020-07-06] MEDS: hydrALAZINE 25 MG TAB PO SCH ×2 (10:01→13:37)
[2020-07-06] MEDS: HEPARIN 5,000 UNIT/1 ML VIAL SUB-Q SCH (10:09)
--- NOTE | 2020-07-06 10:44 | Progress Note ---
Assessment and Plan Supraventricular tachycardia on metoprolol for suppression Elevated troponin, nonspecific pt denies chest pain Lactid acidosis -resolved Acute encephalopathy -resolved head CT scan: no acute intracranial abnormalities Hx of resolving CMP Normal left ventricular systolic function, EF 55-60% by echo this admission Normal LVEF by re-echo 03/2019 no ischemia by MPI 10/2018 LVEF 30-35% by echo 10/2018 Chronic renal disease Hypertension -better Hx of Discoid Lupus HLP Continue telemetry monitoring. Otherwise, conservative cardiac management. Subjective Date of service: 07/06/20 Principal diagnosis: Acute encephalopathy, UTI Interval history: Patient appears well, resting in bed comfortably. He denies palpitations, dizziness and light headedness. No events reported on telemetry monitoring overnight. BP is better, systolic at 126. Objective Vital Signs Temp Pulse Pulse Resp BP BP Pulse Ox 07/06/20 10:13 89 126/83 07/06/20 10:01 89 126/83 07/06/20 08:41 98.6 F 89 18 126/83 99 07/06/20 03:21 98.1 F 92 H 18 125/78 97 07/06/20 03:00 90 125/78 07/05/20 23:17 98.5 F 99 H 16 123/79 96 07/05/20 23:00 99 H 07/05/20 22:00 94 H 07/05/20 21:40 95 H 130/85 07/05/20 19:22 98.3 F 94 H 16 135/84 97 07/05/20 17:16 103 H 138/82 07/05/20 17:06 98.2 F 102 H 18 130/82 98 07/05/20 15:55 108 H 07/05/20 13:45 138/83 07/05/20 13:44 104 H 138/83 07/05/20 12:15 94 H 171/120 07/05/20 12:02 98 F 94 H 18 171/120 97 - Physical Examination General: No Apparent Distress HEENT: Positive: PERRL Neck: Positive: trachea midline Cardiac: Positive: Reg Rate and Rhythm Lungs: Positive: Decreased Breath Sounds Neuro: Positive: Grossly Intact Skin: Positive: Other (Skin discoloration associated with lupus) Extremities: Absent: edema
--- NOTE | 2020-07-06 11:38 | Discharge Summary ---
Providers - Providers Date of Admission: 07/04/20 15:51 Date of discharge: 07/06/20 Attending physician: SHARAN SCANLON 07/03/20 19:08 Consult to Physician [CONS] Urgent Comment: Dr. Larkin spoke with Dr. Alegre @ 1918 Consulting Provider: RUSSELL POWELL Physician Instructions: Reason For Exam: Abnormal EKG, elevated troponin 07/04/20 01:25 Physical Therapy Evaluation and Treat [CONS] Routine Comment: Reason For Exam: unable to walk Primary care physician: CHEMICAL PROCESSING TECHNICIAN Hospitalization Reason for admission: AMS Condition: Good Hospital course: This patient is a 40-year-old man with a history of lupus, chronic hypertension and chronic kidney disease who was admitted to the hospital with altered mental status, and is undergoing neurological work-up for acute encephalopathy. A lumbar puncture was done in the emergency room. There are multiple laboratory abnormalities including a lactate level of 2.7, a creatinine of 1.8, and a low TSH of 0.16. Also, pt noted to have troponin level was also measured and mildly elevated at 0.22-0.36. Cardiology consultation was requested for evaluation of the elevated troponin. We also note that the patient's ECG on this presentation was sinus tachycardia at 110, with a new right bundle branch block. Despite the right bundle branch block, there are no ischemic ST or T wave abnormalities chest x-ray shows a mild to moderate cardiomegaly, but clear lungs. ECHO completed for CM which revealed Normal left ventricular systolic function, EF 55-60%. Cards recommended conservative rx. Pt. had SVT treated with metoprolol 200 mg p.o. twice daily. Disposition: TO HOME OR SELFCARE Time spent for discharge: 32 Core Measure Documentation - Palliative Care Palliative Care/ Comfort Measures: Not Applicable - Core Measures Any of the following diagnoses?: none Exam - Constitutional Vitals: Temp Pulse Resp BP Pulse Ox 98.6 F 89 18 126/83 99 07/06/20 08:41 07/06/20 10:13 07/06/20 08:41 07/06/20 10:13 07/06/20 08:41 General appearance: Present: no acute distress, well-nourished - EENT Eyes: Present: PERRL ENT: hearing intact, clear oral mucosa - Neck Neck: Present: supple, normal ROM - Respiratory Respiratory effort: normal Respiratory: bilateral: CTA - Cardiovascular Heart Sounds: Present: S1 & S2. Absent: rub, click - Extremities Extremities: pulses symmetrical, No edema Peripheral Pulses: within normal limits - Abdominal General gastrointestinal: Present: soft, non-tender, non-distended, normal bowel sounds Male genitourinary: Present: normal - Integumentary Integumentary: Present: clear, warm, dry - Musculoskeletal Musculoskeletal: gait normal, strength equal bilaterally - Psychiatric Psychiatric: appropriate mood/affect, intact judgment & insight - Neurologic Neurologic: CNII-XII intact, moves all extremities Plan Activity: advance as tolerated Weight Bearing Status: Weight Bear as Tolerated Diet: regular Follow up with: PRIMARY CARE, [Primary Care Provider] - 7 Days Prescriptions: hydrALAZINE [Apresoline TAB] 25 mg PO TID #90 Verapamil ER [Calan SR] 240 mg PO DAILY #30 Oxybutynin [Ditropan] 5 mg PO DAILY #30 Aspirin EC [Halfprin EC] 81 mg PO QDAY #30 tablet. Metoprolol [Lopressor TAB] 200 mg PO BID #60 tablet Pantoprazole [Protonix TAB] 40 mg PO DAILY #30 tablet Ropinirole HCl [Requip] 0.5 mg PO DAILY #30 Simvastatin 20 mg PO DAILY #30
[2020-07-06 12:11] VITALS: BP 114/71
[2020-07-06] MEDS: SODIUM CHLORIDE 0.9% 1000 ML 1,000 ML IV SCH (13:38)
[2020-07-09 14:27] LABS: ANA Screen, IFA Positive (Negative)
== END 2020-07-06 16:02 | disposition home or self-care (01) | DRG 682 ==
LOC: ED 17:01 → 3A 19:10 → 4A 21:10 → OBSVTOIN 07-04 15:51
PROVIDERS: ADMIT Internal Medicine; ATTEND Hospitalist
PROC: 009U3ZX Drainage of Spinal Canal, Percutaneous Approach, Diagnostic (ICD-10-PCS; principal; 2020-07-03)
DX: N17.9 Acute kidney failure, unspecified (principal); G92 Toxic encephalopathy; N39.0 Urinary tract infection, site not specified; R65.10 Systemic inflammatory response syndrome (SIRS) of non-infectious origin without acute organ dysfunction; E87.2 Acidosis; I47.1 Supraventricular tachycardia; I42.9 Cardiomyopathy, unspecified; R79.89 Other specified abnormal findings of blood chemistry; M32.9 Systemic lupus erythematosus, unspecified; N18.9 Chronic kidney disease, unspecified; I12.9 Hypertensive chronic kidney disease with stage 1 through stage 4 chronic kidney disease, or unspecified chronic kidney disease; E78.5 Hyperlipidemia, unspecified; Z88.2 Allergy status to sulfonamides; Z79.899 Other long term (current) drug therapy; Z82.49 Family history of ischemic heart disease and other diseases of the circulatory system
CPT/HCPCS: 36415; 70450; 71045; 80053; 80061; 80307; 80320; 81001; 82140; 82550; 82947; 83735; 84160; 84439; 84443; 84484; 85007; 85025; 85610; 85652; 85730; 86038; 86140; 86225; 86850; 86900; 86901; 87040; 87086; 87116; 87641; 89051; 93005; 93306; 96361; 96372; 96374; 96375; G0378; A9270-GY; G0480; J0360; J0696; J1100; J1644; J3010; J7030; J7040; J7120

== ENCOUNTER 2020-09-05 09:41 | Outpatient (CLI) | payer OTHER ==
[2020-09-05 10:17] LABS: Hematocrit 30.7 % (35.5-45.6); Hemoglobin 10.3 gm/dl (11.8-15.2); Mean Corpuscular HGB Conc 33 % (32-34); Mean Corpuscular Volume 88 fl (84-94); Platelet Count 285 K/mm3 (140-440); Red Blood Count 3.49 M/mm3 (3.65-5.03)
[2020-09-05 10:22] LABS: Red Cell Distribution Width 20.8 % (13.2-15.2)
[2020-09-05 10:47] LABS: Albumin 3.5 g/dL (3.9-5); Calcium 8.8 mg/dL (8.4-10.2)
== END 2020-09-05 09:42 | disposition home or self-care (01) ==
LOC: LAB 09:41
PROVIDERS: ATTEND Internal Medicine Nephrology
DX: R94.4 Abnormal results of kidney function studies (principal); M32.9 Systemic lupus erythematosus, unspecified
CPT/HCPCS: 36415; 80048; 82040; 84100; 85027

== ENCOUNTER 2021-02-14 13:02 | Observation (INO) | payer OTHER ==
--- NOTE | 2021-02-14 14:11 | Event Note ---
ED Screening Note Date of service: 02/14/21 Time: 14:10 ED Screening Note: Patient sent here from dialysis center for elevated blood pressure Patient did not complete dialysis treatment Blood pressure noted to be 210/130 This initial assessment/diagnostic orders/clinical plan/treatment(s) is/are subject to change based on patients health status, clinical progression and re- assessment by fellow clinical providers in the ED. Further treatment and workup at subsequent clinical providers discretion. Patient/guardian urged not to elope from the ED as their condition may be serious if not clinically assessed and managed. Initial orders include: Labs Main ED
[2021-02-14 15:06] LABS: Basophils % (Auto) 0.6 % (0.0-1.8); Eosinophils # (Auto) 0.1 K/mm3 (0.0-0.4); Eosinophils % (Auto) 2.1 % (0.0-4.3); Hematocrit 31.9 % (35.5-45.6); Hemoglobin 10.7 gm/dl (11.8-15.2); Lymphocytes # (Auto) 1.1 K/mm3 (1.2-5.4); Lymphocytes % (Auto) 19.2 % (13.4-35.0); Mean Corpuscular HGB Conc 34 % (32-34); Mean Corpuscular Volume 95 fl (84-94); Monocytes # (Auto) 0.7 K/mm3 (0.0-0.8); Monocytes % (Auto) 12.9 % (0.0-7.3); Platelet Count 118 K/mm3 (140-440); Red Blood Count 3.35 M/mm3 (3.65-5.03); Red Cell Distribution Width 16.6 % (13.2-15.2)
[2021-02-14 15:34] LABS: Calcium 11.4 mg/dL (8.4-10.2)
[2021-02-14] MEDS ORDERED: cloNIDine 0.2 MG TAB PO ONE (16:50)
--- NOTE | 2021-02-14 16:50 | Emergency Department Report ---
ED Medical Clearance HPI - General Chief complaint: Medical Clearance Stated complaint: HIGH BLOOD PRESSURE Time Seen by Provider: 02/14/21 14:10 Source: patient Mode of arrival: Ambulatory Limitations: No Limitations - History of Present Illness Initial comments: The patient was evaluated in the emergency department for symptoms described in the history of present illness. He/she was evaluated in the context of the global COVID-19 pandemic, which necessitated consideration that the patient might be at risk for infection with the virus that causes COVID-19. Institutional protocols and algorithms that pertain to the evaluation of patients at risk for COVID-19 are in a state of rapid change based on information released by regulatory bodies including the CDC and federal and state organizations. These policies and algorithms were followed during the patient's care in the emergency department. Please note that these policies, procedures and recommendations changed on a rapid basis. Nephrology, Dr. Hayden, Dr. Jo This is a 40-year-old gentleman. I have evaluated this patient in the past. His past medical history includes end-stage renal disease on hemodialysis, Friday, Friday, Friday, lupus, indwelling right-sided thoracic dialysis access catheter, anemia, and hypertension. His current antihypertensive medications include metoprolol, 100 mg twice daily, valsartan, 160 mg daily, verapamil, to 40 mg twice daily, losartan, 100 mg daily. A few weeks ago, his auto tire recapper discontinued hydralazine, 50 mg every 8 hours. The patient is referred to the emergency room today by his outpatient hemodialysis center for asymptomatic hypertension. The patient denies all medical complaints at this time. He feels like he is in his usual state of health. He endorses that if not referred to the emergency room by his dialysis center, he would not have presented to the emergency room. He states his blood pressure systolically is typically in the 180s/190s. He endorses compliance with his medications. He denies dietary discretions. He has no complaints at this time. He indicates he would like to be discharged. He last had dialysis on Friday. Today, he did not receive hemodialysis, as per his history, because "my blood pressure was too high and they would not do it." Complaint: medical clearance request, other Alledged Intoxication: No Compliant with Home Medications: Yes Traumatic Symptoms: denies traumatic injury Treatments Prior to Arrival: none (Patient states no treatment) Home medications: Home Medications Medication Instructions Recorded Confirmed Last Taken Losartan [Cozaar] 100 mg PO QDAY 02/14/21 02/14/21 Unknown Metoprolol [Lopressor TAB] 100 mg PO BID 02/14/21 02/14/21 Unknown Valsartan [Diovan] 160 mg PO QDAY 02/14/21 02/14/21 Unknown Previous Rx's Medication Instructions Recorded Last Taken Type Verapamil ER [Calan SR] 240 mg PO DAILY #30 07/06/20 1 Week Ago Rx ~12/17/20 Allergies/Adverse reactions: Allergies Allergy/AdvReac Type Severity Reaction Status Date / Time lisinopril AdvReac Rash Verified 12/20/20 17:03 sulfamethoxazole AdvReac Unknown Verified 12/20/20 17:03 [From Bactrim] trimethoprim [From Bactrim] AdvReac Unknown Verified 12/20/20 17:03 ED Review of Systems ROS: Stated complaint: HIGH BLOOD PRESSURE Other details as noted in HPI Comment: All other systems reviewed and negative ED Past Medical Hx - Past Medical History Previous Medical History?: Yes Hx Hypertension: Yes Hx Congestive Heart Failure: No Hx Diabetes: No Hx Liver Disease: No Hx Renal Disease: Yes (Dialysis Fri, Fri, Friday) Hx Arthritis: Yes Hx Seizures: No Hx Asthma: No Hx COPD: No Additional medical history: lupus,urinary incontinence,anemia - Surgical History Past Surgical History?: Yes Additional Surgical History: hernia repair x 2 - Social History Smoking Status: Current Every Day Smoker Substance Use Type: None - Medications Home Medications: Home Medications Medication Instructions Recorded Confirmed Last Taken Type Verapamil ER [Calan SR] 240 mg PO DAILY #30 07/06/20 02/14/21 1 Week Ago Rx ~12/17/20 Losartan [Cozaar] 100 mg PO QDAY 02/14/21 02/14/21 Unknown History Metoprolol [Lopressor TAB] 100 mg PO BID 02/14/21 02/14/21 Unknown History Valsartan [Diovan] 160 mg PO QDAY 02/14/21 02/14/21 Unknown History ED Physical Exam - General Limitations: No Limitations General appearance: alert, in no apparent distress - Head Head exam: Present: atraumatic, normocephalic - Eye Eye exam: Present: normal appearance, EOMI. Absent: nystagmus - ENT ENT exam: Present: normal exam, normal orophraynx, mucous membranes moist, normal external ear exam - Neck Neck exam: Present: normal inspection, full ROM. Absent: tenderness, meningismus - Respiratory Respiratory exam: Present: normal lung sounds bilaterally, other (There is a right-sided vascular access catheter, without redness, pus or streaking). Absent: respiratory distress, wheezes, rales, rhonchi, stridor, chest wall tenderness - Cardiovascular Cardiovascular Exam: Present: regular rate, normal rhythm, normal heart sounds. Absent: bradycardia, tachycardia, irregular rhythm, systolic murmur, diastolic murmur, rubs, gallop - GI/Abdominal GI/Abdominal exam: Present: soft, normal bowel sounds. Absent: distended, tenderness, guarding, rebound, rigid, pulsatile mass - Rectal Rectal exam: Present: deferred - Extremities Exam Extremities exam: Present: normal inspection, full ROM, pedal edema (2-3+ edema in the bilateral lower extremities), other (2+ pulses noted in the bilateral upper and lower extremities. There is no palpable cord. negative Homans sign. Muscular compartments are soft. The pelvis is stable.). Absent: calf tenderness - Back Exam Back exam: Present: normal inspection. Absent: tenderness, CVA tenderness (R), CVA tenderness (L), paraspinal tenderness, vertebral tenderness - Neurological Exam Neurological exam: Present: alert, other (No facial droop. Tongue midline. Extraocular movements intact bilaterally. Facial sensation intact to light touch in V1, V2, V3 distribution bilaterally. 5 and a 5 strength in 4 extremities. Sensation intact to light touch in 4 extremities.). Absent: motor sensory deficit - Psychiatric Psychiatric exam: Present: normal affect, normal mood - Skin Skin exam: Present: warm, dry, intact, normal color. Absent: rash ED Course Vital Signs 02/14/21 02/14/21 13:27 17:36 Temperature 97.9 F Pulse Rate 72 Respiratory 16 Rate Blood Pressure 210/130 [Right] O2 Sat by Pulse 98 Oximetry O2 Sat by Pulse 99 Oximetry [ Digit-Finger] - Reevaluation(s) Reevaluation #1: 02/14/21 17:34 Differential diagnosis, including but not limited to: End-stage renal disease on hemodialysis, chronic hypertension Assessment and plan: 40-year-old gentleman, who was afebrile, with reassuring vital signs with the exception of chronically elevated blood pressure, who was referred to the emergency room by his dialysis center for asymptomatic and uncontrolled hypertension. The patient is not in any acute distress, talking and playing on his cellular phone, and indicates he would like to be discharged. His laboratory studies have not demonstrated any condition that would require emergent hemodialysis. The patient has no acute complaints at this time physically, and he indicates he only came here because his dialysis center compelled him to do so. This patient has chronic hypertension, and chronically lives at elevated blood pressures. He is aware of this. To emergently de-escalate this patient's blood pressure would be dangerous, as his autoregulation curve has shifted to accommodate high blood pressures. He will need to have his blood pressure gradually dressed over time. As a courtesy, I will discuss with his private auto tire recapper recovery auto tire recapper To determine if they would like to add on hydralazine, or adjust his medications otherwise. He will be given a dose of clonidine here in the emergency room, but control of his hypertension will take weeks and months to achieve 02/14/21 18:34 Patient has received clonidine, blood pressure now 230/125. He is reading a book. He is in no acute distress. Have reached out to covering nephrology, Dr. Ledezma. She recommends admission for blood pressure control, urgent nephrology consultation, they will evaluate the patient tomorrow, and arrange for hemodialysis as well. Patient updated on this plan of care. He is amenable to this plan of care. Hospital physician, Dr. Vaughn, to admit patient to the medical service. ED Medical Decision Making - Lab Data Result diagrams: 02/14/21 14:53 02/14/21 14:53 Vital Signs 02/14/21 13:27 Temperature 97.9 F Pulse Rate 72 Respiratory 16 Rate Blood Pressure 210/130 [Right] O2 Sat by Pulse 98 Oximetry Lab Results 02/14/21 02/14/21 Range/Units 14:53 14:53 WBC 5.6 (4.5-11.0) K/mm3 RBC 3.35 L (3.65-5.03) M/mm3 Hgb 10.7 L (11.8-15.2) gm/dl Hct 31.9 L (35.5-45.6) % MCV 95 H (84-94) fl MCH 32 (28-32) pg MCHC 34 (32-34) % RDW 16.6 H (13.2-15.2) % Plt Count 118 L (140-440) K/mm3 Lymph % (Auto) 19.2 (13.4-35.0) % [place] % (Auto) 12.9 H (0.0-7.3) % Eos % (Auto) 2.1 (0.0-4.3) % Baso % (Auto) 0.6 (0.0-1.8) % Lymph # (Auto) 1.1 L (1.2-5.4) K/mm3 [place] # (Auto) 0.7 (0.0-0.8) K/mm3 Eos # (Auto) 0.1 (0.0-0.4) K/mm3 Baso # (Auto) 0.0 (0.0-0.1) K/mm3 Seg Neutrophils % 65.2 (40.0-70.0) % Seg Neutrophils # 3.6 (1.8-7.7) K/mm3 Sodium 137 (137-145) mmol/L Potassium 3.5 L (3.6-5.0) mmol/L Chloride 91.0 L (98-107) mmol/L Carbon Dioxide 40 H (22-30) mmol/L Anion Gap 10 mmol/L BUN 20 (9-20) mg/dL Creatinine 5.3 H (0.8-1.3) mg/dL Estimated GFR 15 ml/min BUN/Creatinine Ratio 4 % Glucose 81 (75-100) mg/dL Calcium 11.4 H (8.4-10.2) mg/dL - Pulse Oximetry Interpretation Digit-Finger Initial Pulse Oximetry Readin O2 Sat by Pulse Oximetry: 99 Actions Taken: none ED Disposition Clinical Impression: End stage renal disease on dialysis, Hypertensive urgency Disposition: OP ADMIT IP TO THIS HOSP Is pt being admited?: Yes Does the pt Need Aspirin: No Condition: Stable Instructions: Hypertension (ED) Referrals: PRIMARY CARE, [Referring] - 3-5 Days
[2021-02-14] MEDS ORDERED: hydrALAZINE 20 MG/1 ML INJ IV ONE (18:24)
--- NOTE | 2021-02-14 18:27 | Event Note ---
Date: 02/14/[address] Olivares. Patient presents to the ED from outpatient dialysis clinic via EMS with accerlated hypertension. Most current blood pressure in 210/130. Recommend admission for accelerated hypertension. Will likely need Cardene gtt to avoid abrupt decline in blood pressure. Given current blood pressure, he is not hemodynamicallyy stable for hemodialysis. K wnl. Patient w/ normal oxygenation on room air - O2 sat 98%.
[2021-02-14] MEDS ORDERED: ACETAMINOPHEN 325 MG TAB PO PRN (18:42)
[2021-02-14] MEDS ORDERED: ALBUTEROL 2.5 MG/3 ML NEBU IH PRN (18:42)
[2021-02-14] MEDS ORDERED: ONDANSETRON 4 MG/2 ML INJ IV PRN (18:42)
--- NOTE | 2021-02-14 18:46 | History and Physical Report ---
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 Patient reports "my blood pressure is too high". Patient reports feeling in his usual state of health and presented to his outpatient dialysis center today for his routine scheduled dialysis. Patient was found to have uncontrolled hypertension with a systolic blood pressure above 200. Patient was unable to undergo dialysis. EMS was notified and upon arrival the patient was subsequently transported to [facility] for further care and evaluation of the aforementioned symptoms. The patient was seen and evaluated in the emergency department. All lab and imaging studies reviewed. Patient found to have end-stage renal disease, accelerated hypertension. Patient placed in observation status and admitted to medical floor. Patient initiated on antihypertensive therapy. Patient denies headache, fever, chills, CP, dizziness, vision changes, palpitations, NVD, Trauma, productive cough, hemoptysis, skin rash, or recent ill contacts. Nephrology consulted in ED. prior admission on 12/21/2020 reviewed. All medication listed at time of admission has been reconciled. Past History Past Medical History: anemia, ESRD, hypertension, other (See HPI) Past Surgical History: hernia repair, Other (Dialysis access) Social history: single, smoking Family history: hypertension Medications and Allergies Allergies Allergy/AdvReac Type Severity Reaction Status Date / Time lisinopril AdvReac Rash Verified 12/20/20 17:03 sulfamethoxazole AdvReac Unknown Verified 12/20/20 17:03 [From Bactrim] trimethoprim [From Bactrim] AdvReac Unknown Verified 12/20/20 17:03 Home Medications Medication Instructions Recorded Confirmed Last Taken Type Verapamil ER [Calan SR] 240 mg PO DAILY #30 07/06/20 02/14/21 1 Week Ago Rx ~12/17/20 Losartan [Cozaar] 100 mg PO QDAY 02/14/21 02/14/21 Unknown History Metoprolol [Lopressor TAB] 100 mg PO BID 02/14/21 02/14/21 Unknown History Valsartan [Diovan] 160 mg PO QDAY 02/14/21 02/14/21 Unknown History Active Meds: Active Medications Acetaminophen (Acetaminophen 325 Mg Tab) 650 mg PO Q4H PRN PRN Reason: Pain MILD(1-3)/Fever >100.5/CADET Albuterol (Albuterol 2.5 Mg/3 Ml Nebu) 2.5 mg IH Q4HRT PRN PRN Reason: Shortness Of Breath Hydralazine HCl (Hydralazine 20 Mg/1 Ml Inj) 10 mg IV Q6HR PRN PRN Reason: Hypertension Metoprolol Tartrate (Metoprolol Tartrate 100 Mg Tab) 100 mg PO BID [facility] Ondansetron HCl (Ondansetron 4 Mg/2 Ml Inj) 4 mg IV Q8H PRN PRN Reason: Nausea And Vomiting Sodium Chloride (Sodium Chloride 0.9% 10 Ml Flush Syringe) 10 ml IV BID ADIA Sodium Chloride (Sodium Chloride 0.9% 10 Ml Flush Syringe) 10 ml IV PRN PRN PRN Reason: LINE FLUSH Valsartan (Valsartan 160mg Tab) 160 mg PO QDAY ADIA Verapamil HCl (Verapamil Er 240 Mg Tab) 240 mg PO DAILY [facility] Review of Systems Constitutional: no weight gain, no fever, no chills Ears, nose, mouth and throat: no ear discharge, no tinnitis, no decreased hearing Cardiovascular: no chest pain, no orthopnea, no palpitations, no rapid/irregular heart beat Respiratory: no cough, no shortness of breath Gastrointestinal: no abdominal pain, no nausea, no vomiting, no constipation, no change in bowel habits, no hematemesis Genitourinary Male: no hematuria, no flank pain, no discharge, no urinary frequency, no urinary hesitancy, no incontinence Rectal: no pain, no incontinence, no bleeding Musculoskeletal: no neck stiffness, no neck pain, no shooting arm pain, no arm numbness/tingling Integumentary: no rash, no pruritis, no wounds, no jaundice Neurological: no head injury, no transient paralysis, no paralysis, no weakness, no numbness, no seizures, no tremors Psychiatric: no anxiety, no change in sleep habits, no sleep disturbances Endocrine: no cold intolerance, no heat intolerance, no excessive thirst, no polydipsia, no polyuria, no excessive sweating Hematologic/Lymphatic: no easy bruising, no easy bleeding Allergic/Immunologic: no allergic rhinitis, no wheezing Exam - Constitutional Vitals: Temp Pulse Resp BP Pulse Ox 97.9 F 72 16 210/130 99 02/14/21 13:27 02/14/21 13:27 02/14/21 13:27 02/14/21 13:27 02/14/21 18:35 General appearance: Present: mild distress - EENT Eyes: Present: PERRL ENT: hearing intact, clear oral mucosa - Neck Neck: Present: supple, normal ROM - Respiratory Respiratory effort: normal Respiratory: bilateral: CTA - Cardiovascular Heart Sounds: Present: S1 & S2. Absent: rub, click - Extremities Extremities: pulses symmetrical, No edema Peripheral Pulses: within normal limits - Abdominal General gastrointestinal: Present: soft, non-tender, non-distended, normal bowel sounds Male genitourinary: Present: normal - Integumentary Integumentary: Present: clear, warm, dry - Musculoskeletal Musculoskeletal: gait normal, strength equal bilaterally - Psychiatric Psychiatric: appropriate mood/affect, intact judgment & insight - Neurologic Neurologic: CNII-XII intact, moves all extremities Results - Labs CBC & Chem 7: 02/14/21 14:53 02/14/21 14:53 Labs: Abnormal lab results 02/14/21 02/14/21 Range/Units 14:53 14:53 RBC 3.35 L (3.65-5.03) M/mm3 Hgb 10.7 L (11.8-15.2) gm/dl Hct 31.9 L (35.5-45.6) % MCV 95 H (84-94) fl RDW 16.6 H (13.2-15.2) % Plt Count 118 L (140-440) K/mm3 [place] % (Auto) 12.9 H (0.0-7.3) % Lymph # (Auto) 1.1 L (1.2-5.4) K/mm3 Potassium 3.5 L (3.6-5.0) mmol/L Chloride 91.0 L (98-107) mmol/L Carbon Dioxide 40 H (22-30) mmol/L Creatinine 5.3 H (0.8-1.3) mg/dL Calcium 11.4 H (8.4-10.2) mg/dL Assessment and Plan - Patient Problems (1) Hypertensive urgency Current Visit: Yes Status: Acute Plan to address problem: Monitor blood pressure every shift, IV hydralazine every 6 hours as needed for systolic blood pressure greater than 155, resume prehospital antihypertensive therapy. (2) End stage renal disease on dialysis Current Visit: Yes Status: Acute Plan to address problem: Nephrology team consulted in ED, dialysis as per renal team. (3) Lupus (systemic lupus erythematosus) Current Visit: No Status: Chronic Qualifiers: Systemic lupus erythematosus type: unspecified Systemic lupus erythematosus organ involvement: unspecified Qualified Code(s): M32.9 - Systemic lupus erythematosus, unspecified Plan to address problem: Continue medical management, outpatient rheumatology follow-up. (4) DVT prophylaxis Current Visit: Yes Status: Acute Plan to address problem: SCD to bilateral lower extremities while in bed, patient is ambulatory.
[2021-02-14] MEDS: METOPROLOL TARTRATE 100 MG TAB PO SCH (22:35)
[2021-02-14] MEDS: hydrALAZINE 20 MG/1 ML INJ IV PRN (23:52)
[2021-02-15 06:38] LABS: Calcium 10.9 mg/dL (8.4-10.2)
[2021-02-15] MEDS: hydrALAZINE 20 MG/1 ML INJ IV PRN (07:13)
[2021-02-15] MEDS ORDERED: SODIUM CHLORIDE 0.9% 100 ML IV PRN (07:34)
[2021-02-15 07:47] LABS: Amphetamine Screen,Urine PRESUMPTIVE NEGATIVE; Benzodiazepines Screen,Urine PRESUMPTIVE NEGATIVE; Cannabinoid Screen,Urine PRESUMPTIVE NEGATIVE; Cocaine Screen,Urine PRESUMPTIVE NEGATIVE; Methadone Screen,Urine PRESUMPTIVE NEGATIVE; Opiate Screen,Urine PRESUMPTIVE NEGATIVE
[2021-02-15] MEDS: METOPROLOL TARTRATE 100 MG TAB PO SCH (09:58)
[2021-02-15] MEDS ORDERED: VALSARTAN 160MG TAB PO SCH (10:00)
[2021-02-15] MEDS ORDERED: VERAPAMIL ER 240 MG TAB PO SCH (10:00)
--- NOTE | 2021-02-15 12:25 | Discharge Summary ---
Providers - Providers Date of Admission: 02/14/21 18:42 Date of discharge: 02/15/21 Attending physician: BALJINDER ALCALA 02/14/21 16:50 Consult to Physician [CONS] Stat Comment: Consulting Provider: ALBANIA HERNANDEZ Physician Instructions: Reason For Exam: htn esrd Primary care physician: RON ALEMAN Hospitalization Condition: Stable Hospital course: This is a 40-year-old male with history of end-stage renal disease on hemodialysis (Friday), SLE complicated by nephritis, hypertension, anemia of chronic disease, nicotine dependence presented to the hospital with complaint of elevated blood pressure. Patient went to the outpatient dialysis center for his routine dialysis but his blood pressure was elevated with a systolic above 200. Patient was immediately transported to [facility] for further evaluation and management. Nephrology was consulted on admission. Patient home medications were reconciled and restarted. Blood pressure medications were adjusted his blood pressure was stabilized. Patient also received hemodialysis. Patient was recommended for compliance with his medications. Patient was then discharged home in stable condition with outpatient follow-up. Disposition: DC/TX- HOME UNDER HOME [facility] Final Discharge Diagnosis (Prints w/discharge instructions): ESRD, hypertensive urgency, history of lupus, noncompliance. Time spent for discharge: 34 minutes Core Measure Documentation - Palliative Care Palliative Care/ Comfort Measures: Not Applicable - Core Measures Any of the following diagnoses?: none Exam - Physical Exam Narrative exam: GENERAL: well-developed and well-nourished male lying on bed appeared to be in no discomfort. HEENT: Normocephalic. Atraumatic. No conjunctival congestion or icterus. Patient has moist mucous membranes. NECK: Supple. Trachea midline. CHEST/LUNGS: Clear to auscultated bilaterally, breathing nonlabored. No wheezes crackles or rhonchi. HEART/CARDIOVASCULAR: Regular in rate and rhythm. S1 and S2 positive. ABDOMEN: Abdomen is soft, nontender. Patient has normal bowel sounds. SKIN: There is no rash. Warm and dry. NEURO: No focal motor deficit. Follows command. MUSCULOSKELETAL: No joint effusion or tenderness. EXTRIMITY: No edema, no cyanosis or clubbing. PSYCH: Cooperative. - Constitutional Vitals: Temp Pulse Resp BP Pulse Ox 97.8 F 66 16 147/95 97 02/15/21 10:00 02/15/21 12:00 02/15/21 10:00 02/15/21 12:00 02/15/21 08:20 Plan Activity: advance as tolerated Weight Bearing Status: Weight Bear as Tolerated Diet: renal Special Instructions: restrict fluid intake to (1.2L per day ), record daily BP diary Follow up with: PRIMARY CARE, [Referring] - 3-5 Days Prescriptions: hydrALAZINE [Apresoline TAB] 50 mg PO Q8HR #90 tablet Verapamil ER [Calan SR] 240 mg PO DAILY #60 Valsartan [Diovan] 160 mg PO QDAY #60 Metoprolol [Lopressor TAB] 100 mg PO BID #60
[2021-02-15 12:27] LABS: Hepatitis B Surface Antigen Non-Reactive (Negative); Hepatitis C Virus Antibody Non-Reactive (NonReactive)
[2021-02-15] MEDS ORDERED: hydrALAZINE 25 MG TAB PO SCH (14:00)
[2021-02-15 14:26] VITALS: BP 130/94
--- NOTE | 2021-02-15 15:10 | Consultation ---
History of Present Illness - Reason for Consult Consult date: 02/15/21 end stage renal disease - History of Present Illness This is a 40 year-old man with ESRD who presents for hypertensive crisis. Patient usually dialyzes MWF at [facility]. Last HD 02/12, went to HD on 02/15 but could not start due to systolic BP >200. Denies any recent issues with HD, including dizziness, lightheadedness, cramping, chest pain on HD. Currently, patient denies any issues including dyspnea, edema, access issues, nausea, vomiting, headaches. States that recently, his hydralazine was stopped and was started on losartan. Past History Past Medical History: anemia, ESRD, hypertension, other (See HPI) Past Surgical History: hernia repair, Other (Dialysis access) Social history: single, smoking Family history: hypertension Medications and Allergies Allergies Allergy/AdvReac Type Severity Reaction Status Date / Time lisinopril AdvReac Rash Verified 12/20/20 17:03 sulfamethoxazole AdvReac Unknown Verified 12/20/20 17:03 [From Bactrim] trimethoprim [From Bactrim] AdvReac Unknown Verified 12/20/20 17:03 Home Medications Medication Instructions Recorded Confirmed Last Taken Type Metoprolol [Lopressor TAB] 100 mg PO BID #60 02/15/21 Unknown Rx Valsartan [Diovan] 160 mg PO QDAY #60 02/15/21 Unknown Rx Verapamil ER [Calan SR] 240 mg PO DAILY #60 02/15/21 Unknown Rx hydrALAZINE [Apresoline TAB] 50 mg PO Q8HR #90 tablet 02/15/21 Unknown Rx Active Meds: Active Medications Acetaminophen (Acetaminophen 325 Mg Tab) 650 mg PO Q4H PRN PRN Reason: Pain MILD(1-3)/Fever >100.5/CADET Albuterol (Albuterol 2.5 Mg/3 Ml Nebu) 2.5 mg IH Q4HRT PRN PRN Reason: Shortness Of Breath Hydralazine HCl (Hydralazine 20 Mg/1 Ml Inj) 10 mg IV Q6HR PRN PRN Reason: Hypertension Last Admin: 02/15/21 07:13 Dose: 10 mg Documented by: Hydralazine HCl (Hydralazine 25 Mg Tab) 50 mg PO Q8HR ADIA Sodium Chloride (Nacl 0.9%) 100 mls @ 999 mls/hr IV ADELE PRN PRN Reason: Hypotension Metoprolol Tartrate (Metoprolol Tartrate 100 Mg Tab) 100 mg PO BID COUNTS INCLUDE 234 BEDS AT THE [facility] Last Admin: 02/15/21 09:58 Dose: 100 mg Documented by: Ondansetron HCl (Ondansetron 4 Mg/2 Ml Inj) 4 mg IV Q8H PRN PRN Reason: Nausea And Vomiting Sodium Chloride (Sodium Chloride 0.9% 10 Ml Flush Syringe) 10 ml IV BID COUNTS INCLUDE 234 BEDS AT THE [facility] Last Admin: 02/15/21 09:58 Dose: 10 ml Documented by: Sodium Chloride (Sodium Chloride 0.9% 10 Ml Flush Syringe) 10 ml IV PRN PRN PRN Reason: LINE FLUSH Valsartan (Valsartan 160mg Tab) 160 mg PO QDAY COUNTS INCLUDE 234 BEDS AT THE [facility] Last Admin: 02/15/21 09:58 Dose: 160 mg Documented by: Verapamil HCl (Verapamil Er 240 Mg Tab) 240 mg PO DAILY COUNTS INCLUDE 234 BEDS AT THE [facility] Last Admin: 02/15/21 09:57 Dose: 240 mg Documented by: Review of Systems All systems: negative (as per HPI) Exam - Vital Signs Vital signs: Vital Signs Temp Pulse Resp BP Pulse Ox 97.9 F 72 16 210/130 98 02/14/21 13:27 02/14/21 13:27 02/14/21 13:27 02/14/21 13:27 02/14/21 13:27 - Physical Exam Narrative exam: Constitutional: no acute distress Head: NC/AT Neck: supple Lungs: clear to auscultation CV: RRR, no M/R/G Abdomen: soft, non-tender, bowel sounds present Back: nontender Extremities: no edema, pulses WNL Skin: intact Neuro: no focal deficits, alert and oriented x4 Results - Lab Results 02/14/21 14:53 02/15/21 05:09 Most recent lab results Calcium 10.9 mg/dL (8.4-10.2) H 02/15/21 05:09 Assessment and Plan This is a 40 year old man who presents with hypertensive crisis. # ESRD: HD today as hemodynamically stable, continue HD MWF per outpatient maxine orosco forward - daily labs - renally dose meds - avoid nephrotoxins - renal diet # Anemia: last hemoglobin >10, at goal for ESRD, no indication for ESAs # HTN: UF as tolerated. BP remains high but improved from initial systolic >200. Reviewed medications, lifestyle with patient. Would restart hydralazine 50mg TID (previously was on) at time of discharge, will further titrate at home HD unit # Secondary Hyperparathyroidism: continue home binders as needed # Metabolic Alkalosis: decrease HCO3 bath with HD. May have LUI
== END 2021-02-15 18:39 | disposition home health service (06) ==
LOC: ED 13:02 → 3A 18:42
PROVIDERS: ADMIT Internal Medicine; ATTEND Internal Medicine
DX: I16.0 Hypertensive urgency (principal); I12.0 Hypertensive chronic kidney disease with stage 5 chronic kidney disease or end stage renal disease; N18.6 End stage renal disease; D63.1 Anemia in chronic kidney disease; E21.3 Hyperparathyroidism, unspecified; E87.3 Alkalosis; M32.9 Systemic lupus erythematosus, unspecified; M19.90 Unspecified osteoarthritis, unspecified site; F17.210 Nicotine dependence, cigarettes, uncomplicated; Z98.890 Other specified postprocedural states; Z99.2 Dependence on renal dialysis; Z79.899 Other long term (current) drug therapy
CPT/HCPCS: 36415; 80048; 80074; 80307; 85025; 87641; 96374; 96376; 99284; 99406; G0257; G0378; J0360

== ENCOUNTER 2021-08-12 10:48 | Emergency (ER) | payer OTHER ==
--- NOTE | 2021-08-12 11:54 | Event Note ---
Date of service: 08/12/21 Face to Face: For this encounter I have reviewed the PA/LACQUER MIXER documentation, treatment plan, medical decision making, and I had face to face time with this patient. Patient presents with reports of mouth pain. He noticed blood in the mouth today. He was initially seen with the ISELA. Patient denied any history of trauma or injury or fall. He denied seizure and does not have a history of seizures. He did not bite his tongue as far as he is aware. He has noticed that his mouth was hurting and he had blood in his mouth. He has not been bleeding from other sites. On exam, patient has evidence of coagulated blood in both buccal spaces. There is bruising to the lower lip with coagulated blood. I do not see any evidence of petechiae. There is no injury to the tongue noted. Labs will be ordered and the patient will be evaluated for any type of coagulopathy.
[2021-08-12] MEDS ORDERED: SODIUM CHLORIDE 0.9% 1000 ML 1,000 ML IV ONE (11:57)
--- NOTE | 2021-08-12 11:57 | Emergency Department Report ---
Blank Doc - Documentation Documentation: 41-year-old male that presents with mouth sores with blood clots noted in mouth. Tachycardic and febrile in triage. Denies any injuries or trauma. 1- This is a initial triage assessment/medical screening only. Full assessment and work-up will be completed once the patient is in proper hospital gown, ED bed and in a private room setting. This initial assessment/diagnostic orders/clinical plan/ treatment(s) is/are subject to change based on pt's health status, clinical progression and re-assessment by fellow clinical providers in the ED. Further treatment and workup at subsequent clinical providers discretion. Patient/guardians urged not to elope from ED as their condition may be serious if not clinically assessed and managed. 2-labs The patient was evaluated in the emergency department for symptoms described in the history of present illness. He/she was evaluated in the context of the global COVID-19 pandemic, which necessitated consideration that the patient might be at risk for infection with the virus that causes COVID-19. Institutional protocols and algorithms that pertain to the evaluation of patients at risk for COVID-19 are in a state of rapid change based on information released by regulatory bodies including the CDC and federal and state organizations. These policies and algorithms were followed during the patient's care in the emergency department. Please note that these policies, procedures and recommendations changed on a rapid basis.
--- NOTE | 2021-08-12 11:58 | Emergency Department Report ---
ED General Adult HPI - General Chief complaint: Dental/Oral Stated complaint: MOUTH PAIN Time Seen by Provider: 08/12/21 11:40 Source: patient Mode of arrival: Ambulatory Limitations: No Limitations - History of Present Illness Initial comments: ISELA had initially seen this patient. I have assumed care. Patient presents with reports of mouth pain. He noticed blood in the mouth today. He was initially seen with the ISELA. Patient denied any history of trauma or injury or fall. He denied seizure and does not have a history of seizures. He did not bite his tongue as far as he is aware. He has noticed that his mouth was hurting and he had blood in his mouth. He has not been bleeding from other sites. Patient is not sure what happened. He does not take anticoagulants. He has not been using excessive amounts of aspirin. There is no family history of bleeding disorder. - Related Data Previous Rx's Medication Instructions Recorded Last Taken Type Metoprolol [Lopressor TAB] 100 mg PO BID #60 02/15/21 Unknown Rx Valsartan [Diovan] 160 mg PO QDAY #60 02/15/21 Unknown Rx Verapamil ER [Calan SR] 240 mg PO DAILY #60 02/15/21 Unknown Rx hydrALAZINE [Apresoline TAB] 50 mg PO Q8HR #90 tablet 02/15/21 Unknown Rx Allergies Allergy/AdvReac Type Severity Reaction Status Date / Time lisinopril AdvReac Rash Verified 12/20/20 17:03 sulfamethoxazole AdvReac Unknown Verified 12/20/20 17:03 [From Bactrim] trimethoprim [From Bactrim] AdvReac Unknown Verified 12/20/20 17:03 ED Review of Systems ROS: Stated complaint: MOUTH PAIN Other details as noted in HPI Comment: All other systems reviewed and negative Constitutional: denies: fever Eyes: denies: eye pain ENT: as per HPI. denies: throat pain Respiratory: denies: cough Cardiovascular: denies: chest pain Endocrine: denies: unexplained weight loss Gastrointestinal: denies: as per HPI Genitourinary: denies: hematuria Musculoskeletal: denies: back pain Skin: denies: rash Neurological: denies: headache Hematological/Lymphatic: as per HPI ED Past Medical Hx - Past Medical History Previous Medical History?: Yes Hx Hypertension: Yes Hx Congestive Heart Failure: No Hx Diabetes: No Hx Liver Disease: No Hx Renal Disease: Yes (Dialysis Mon, Fri, Friday) Hx Arthritis: Yes Hx Seizures: No Hx Asthma: No Hx COPD: No Additional medical history: lupus,urinary incontinence,anemia - Surgical History Past Surgical History?: Yes Additional Surgical History: hernia repair x 2 - Family History Family history: other ( Negative for coagulopathy) - Social History Smoking Status: Current Every Day Smoker Substance Use Type: Prescribed, Other ( We discussed tobacco cessation x2.) - Medications Home Medications: Home Medications Medication Instructions Recorded Confirmed Last Taken Type Metoprolol [Lopressor TAB] 100 mg PO BID #60 02/15/21 Unknown Rx Valsartan [Diovan] 160 mg PO QDAY #60 02/15/21 Unknown Rx Verapamil ER [Calan SR] 240 mg PO DAILY #60 02/15/21 Unknown Rx hydrALAZINE [Apresoline TAB] 50 mg PO Q8HR #90 tablet 02/15/21 Unknown Rx ED Physical Exam - General Limitations: No Limitations, Other ( pulse ox was noted and normal. Patient is not hypoxic.) General appearance: alert, in no apparent distress - Head Head exam: Present: atraumatic, normocephalic, normal inspection - Eye Eye exam: Present: normal appearance, EOMI. Absent: scleral icterus - ENT ENT exam: Present: normal external ear exam, other ( Patient has coagulated blood in both buccal spaces. There is bruising to the lower lip. There is no evidence of injury to the tongue. There is no airway compromise. There is no obvious laceration.) - Neck Neck exam: Present: normal inspection. Absent: meningismus - Respiratory Respiratory exam: Present: normal lung sounds bilaterally. Absent: respiratory distress - Cardiovascular Cardiovascular Exam: Present: normal rhythm, tachycardia - GI/Abdominal GI/Abdominal exam: Present: soft. Absent: tenderness - Extremities Exam Extremities exam: Present: normal capillary refill. Absent: joint swelling - Back Exam Back exam: Absent: CVA tenderness (R), CVA tenderness (L) - Neurological Exam Neurological exam: Present: alert, oriented X3, CN II-XII intact. Absent: motor sensory deficit - Psychiatric Psychiatric exam: Present: normal affect, normal mood - Skin Skin exam: Present: warm, dry ED Course Vital Signs 08/12/21 11:39 Temperature 100.1 F H Pulse Rate 112 H Respiratory 18 Rate Blood Pressure 134/87 O2 Sat by Pulse 100 Oximetry - Reevaluation(s) Reevaluation #1: 08/12/21 11:57 IV and labs ordered 08/12/21 11:57 Reevaluation #2: 08/12/21 13:33 Labs have been noted. Case was discussed with the hospitalist who declines admission as we do not have hematology available. Etiology for the patient's pancytopenia, specifically leukopenia and thrombocytopenia, is unknown. Platelet transfusion has been ordered. Patient has been updated. Reevaluation #3: 08/12/21 15:14 We are still awaiting to hear whether [facility] can accept this patient. No other [facility] facility has the capacity. The type and screen with platelet transfusion ordered at 1300 has not been completed or initiated yet. Charge nurse aware. Reevaluation #4: 08/12/21 15:52 Patient was accepted at [facility]. ED Medical Decision Making - Lab Data Result diagrams: 08/12/21 12:10 08/12/21 12:10 - Medical Decision Making Patient presented with oropharyngeal bleeding. This was spontaneous nontraumatic. He was found to have thrombocytopenia with a platelet count of 7. He was also neutropenic with a white count of 0.8. This is new for the patient. The platelets have been ordered for transfusion. Hematology and oncology at [facility] along with hospital medicine have agreed to accept the patient. They request the platelet transfusion. They are uncomfortable with him going in an ambulance until his platelet count is at least 10,000. They requested a notification and call back once his platelet count has been repeated after the transfusion. They have also requested a fibrinogen and D-dimer and uric acid which have been added on. Critical Care Time: Yes Critical care time in (mins) excluding proc time.: 45 Critical care attestation.: If time is entered above; I have spent that time in minutes in the direct care of this critically ill patient, excluding procedure time. Critical Care Time: Critical care time of 45 min exclusive of all procedures ED Disposition Clinical Impression: Thrombocytopenia, Chronic anemia, ESRD (end stage renal disease) on dialysis Leukopenia Qualifiers: Leukopenia type: unspecified Qualified Code(s): D72.819 - Decreased white blood cell count, unspecified Disposition: 04 INTERMEDIATE CARE FACILITY Is pt being admited?: No Does the pt Need Aspirin: No Condition: Fair Referrals: RON ALEMAN MD [Primary Care Provider] - 3-5 Days
[2021-08-12 12:41] LABS: Albumin 3.4 g/dL (3.9-5); Calcium 9.4 mg/dL (8.4-10.2)
[2021-08-12 12:49] LABS: Hemoglobin 8.4 gm/dl (11.8-15.2)
[2021-08-12 13:01] LABS: INR 0.95 (0.87-1.13)
[2021-08-12 13:02] LABS: Partial Thromboplastin Time 28.7 Sec. (24.2-36.6)
[2021-08-12 13:03] LABS: Hematocrit 24.1 % (35.5-45.6); Mean Corpuscular HGB Conc 35 % (32-34); Mean Corpuscular Volume 94 fl (84-94); Monocytes % (Auto) 0.4 % (0.0-7.3); Red Blood Count 2.57 M/mm3 (3.65-5.03); Red Cell Distribution Width 14.2 % (13.2-15.2)
[2021-08-12 13:06] LABS: Platelet Count 7 K/mm3 (140-440)
[2021-08-12] MEDS ORDERED: SODIUM CHLORIDE 0.9% 500 ML 500 ML IV ONE (13:10)
[2021-08-12 13:37] LABS: Total Cells Counted 100
[2021-08-12 13:38] LABS: Hypochromasia Few; Platelet Estimate Consistent w Auto
[2021-08-12] MEDS ORDERED: AMINOCAPROIC ACID 5,000 MG in SODIUM CHLORIDE 0.9% 100 ML IV ONE (15:40)
[2021-08-12] MEDS ORDERED: AMINOCAPROIC ACID IV ONE (16:00)
[2021-08-12] MEDS ORDERED: SODIUM CHLORIDE 0.9% IV ONE (16:00)
--- NOTE | 2021-08-12 16:10 | XRay Report ---
CHEST 2 VIEWS INDICATION / CLINICAL INFORMATION: hem/onc request. COMPARISON: 12/26/2020. FINDINGS: SUPPORT DEVICES: None. HEART / MEDIASTINUM: No significant abnormality. LUNGS / PLEURA: No significant pulmonary or pleural abnormality. No pneumothorax. ADDITIONAL FINDINGS: No significant additional findings. IMPRESSION: 1. No acute findings. Signer Name: Alli Boyle MD Signed: 08/12/2021 4:05 PM Workstation Name: [id number]
[2021-08-12] MEDS ORDERED: SODIUM CHLORIDE 0.9% 500 ML 500 ML ONE (21:49)
[2021-08-12 23:50] LABS: Hematocrit 20.3 % (35.5-45.6); Mean Corpuscular HGB Conc 34 % (32-34); Mean Corpuscular Volume 94 fl (84-94); Red Blood Count 2.16 M/mm3 (3.65-5.03)
[2021-08-12 23:51] LABS: Platelet Count 32 K/mm3 (140-440)
[2021-08-13 06:51] VITALS: BP 147/89
== END 2021-08-13 07:00 ==
LOC: ED 10:48
DX: D69.6 Thrombocytopenia, unspecified (principal); D64.89 Other specified anemias; D72.819 Decreased white blood cell count, unspecified; I13.2 Hypertensive heart and chronic kidney disease with heart failure and with stage 5 chronic kidney disease, or end stage renal disease; N18.6 End stage renal disease; F17.200 Nicotine dependence, unspecified, uncomplicated; Z88.1 Allergy status to other antibiotic agents; Z88.2 Allergy status to sulfonamides; Z88.8 Allergy status to other drugs, medicaments and biological substances
CPT/HCPCS: 36415; 36430; 71046; 80053; 84550; 85007; 85025; 85027; 85379; 85384; 85610; 85730; 86850; 86900; 86901; 96361; 96365; 96366; 99291; J7030; J7040; J7050; P9035

== ENCOUNTER 2022-03-28 09:36 | Day surgery (SDC) | payer OTHER, MEDICARE ==
[~2022-03-28 09:36] MED LIST: SODIUM CHLORIDE 0.9% 1000 ML 1,000 ML IV SCH
--- NOTE | 2022-03-28 12:49 | Anesthesia Day of Surgery ---
Anesthesia Day of Surgery - Day of Surgery Patient Examined: Yes Patient H&P Reviewed: Yes Patient is NPO: Yes
--- NOTE | 2022-03-28 12:51 | Anesthesia Consultation ---
Anesthesia Consult and Med Hx - Airway Anesthetic Teeth Evaluation: Poor ROM Head & Neck: Adequate Mental/Hyoid Distance: Adequate Mallampati Class: Class I Intubation Access Assessment: Good - Pulmonary Exam CTA: Yes - Cardiac Exam Cardiac Exam: RRR - Pre-Operative Health Status ASA Pre-Surgery Classification: ASA4 Proposed Anesthetic Plan: MAC (lupus) - Pulmonary Hx Smoking: Yes Hx Asthma: No Hx Respiratory Symptoms: No COPD: No Hx Pneumonia: No - Cardiovascular System Hx Hypertension: Yes Hx Coronary Artery Disease: No - Central Nervous System Hx Seizures: No CVA: No Hx Psychiatric Problems: No - Gastrointestinal Hx Gastroesophageal Reflux Disease: No - Endocrine Hx Renal Disease: Yes (Dialysis Fri, Fri, Friday) Hx End Stage Renal Disease: Yes Hx Liver Disease: No Hx Insulin Dependent Diabetes: No Hx Non-Insulin Dependent Diabetes: No Hx Thyroid Disease: No - Hematic Hx Anemia: Yes - Other Systems Hx Cancer: No
[2022-03-28] MEDS ORDERED: LIDOCAINE MPF (2%) 20 MG/1 ML VIAL 5 ML ONE (12:54)
[2022-03-28] MEDS ORDERED: propofoL 200 MG/20 ML VIAL IV ONE ×3 (12:54→13:10)
--- NOTE | 2022-03-28 13:30 | Operative Report ---
Operative Report Operative Report: DOS: 03/28/22 SURGEON: Clarke Post MD EGD with biopsy REPORT PREOPERATIVE DIAGNOSIS and POSTOPERATIVE DIAGNOSIS: Iron deficiency anemia due to gastrointestinal blood loss ESTIMATED BLOOD LOSS: Minimal DESCRIPTION OF PROCEDURE: A high-resolution EGD scope was passed through the oropharynx, esophagus, stomach, and second portion of duodenum. The scope was carefully withdrawn. Retroflexion was performed in the stomach. At the end of the procedure, the scope was cleaned using normal technique. Vital signs monitored continuously throughout. SEDATION: Provided by [facility]. COMPLICATIONS: None. FINDINGS: * No gross lesions in the duodenum * Severe hemorrhagic gastritis of the gastric antrum and body with adherent old blood. No active bleeding. Mucosa was inflamed and erythematous. Biopsies were taken to rule out H. Pylori infection. A total of 5 biopsies were taken, 2 from the antrum, 1 from the incisura, 2 from the body. * GE junction 45 cm from incisors * Remainder of exam unremarkable RECOMMENDATIONS: Follow-up biopsy results Given hemorrhagic gastritis we will start patient on a proton pump inhibitor, pantoprazole 40 mg daily as the benefits outweighs the renal risks
--- NOTE | 2022-03-28 13:32 | Operative Report ---
Operative Report Operative Report: DOS: 03/28/22 SURGEON: Clarke Post MD COLONOSCOPY REPORT PREOPERATIVE AND POSTOPERATIVE DIAGNOSIS: Iron deficiency anemia due to gastrointestinal blood loss DESCRIPTION OF PROCEDURE: The colonoscope was passed to the cecum as identified by the ileocecal valve and appendiceal orifice. Scope was carefully withdrawn. Retroflexion was performed in the rectum. At the end of procedure, the scope was cleaned using normal technique. Vital signs monitored continuously throughout. Procedure was mildly challenging due to extensive looping, manual pressure required. Due to looping unable to successfully intubate terminal ileum. SEDATION: Provided by [facility]. Quality of the prep was adequate. COMPLICATIONS: None. ESTIMATED BLOOD LOSS: None FINDINGS: Normal colonoscopy RECOMMENDATIONS: Repeat screening colonoscopy in 10 years Iron deficiency anemia due to hemorrhagic gastritis seen on upper endoscopy from today
[2022-03-28] MEDS ORDERED: WATER FOR IRRIG STERILE 1,000 ML BOTTLE ONE (16:23)
[2022-03-28] MEDS ORDERED: WATER FOR IRRIG STERILE 250 ML BOTTLE IR ONE (16:23)
--- NOTE | 2022-03-28 16:34 | Post Anesthesia Evaluation ---
- Post Anesthesia Evaluation Patient Participated: Yes Airway Patent: Yes Stable Respiratory Function: Yes Nausea/Vomiting: No Temp > 96.8F: Yes Pain Manageable: Yes Adequeate Hydration: Yes Anesthesia Complications: No
[2022-03-28 17:57] VITALS: BP 132/78
== END 2022-03-28 14:15 | disposition home or self-care (01) ==
LOC: GIO 09:36
PROVIDERS: ATTEND Student in an Organized Health Care Education/Training Program
DX: D50.0 Iron deficiency anemia secondary to blood loss (chronic) (principal); K29.70 Gastritis, unspecified, without bleeding; K31.89 Other diseases of stomach and duodenum; I13.2 Hypertensive heart and chronic kidney disease with heart failure and with stage 5 chronic kidney disease, or end stage renal disease; N18.6 End stage renal disease; I50.9 Heart failure, unspecified; E78.5 Hyperlipidemia, unspecified; M06.9 Rheumatoid arthritis, unspecified; F17.210 Nicotine dependence, cigarettes, uncomplicated; Z79.899 Other long term (current) drug therapy; Z88.8 Allergy status to other drugs, medicaments and biological substances; Z87.440 Personal history of urinary (tract) infections; Z91.81 History of falling; Z98.890 Other specified postprocedural states; Z72.89 Other problems related to lifestyle; Z82.49 Family history of ischemic heart disease and other diseases of the circulatory system
CPT/HCPCS: 43239; 45378; 88305; 88342; J2704; J7030